=== PATIENT | female | born 1950 | race Caucasian/White ===

== ENCOUNTER → 2019-01-08 | Outpatient (CLI) | payer MEDICARE, SELFPAY ==
[2019-01-08 11:12] VITALS: BMI 42.1
[2019-01-08 14:15] LABS: AST(SGOT) 17 U/L (15-37); Alanine Aminotransfer ALT/SGPT 15 U/L (13-56); Albumin, Serum 3.4 g/dL (3.2-5.0); Alkaline Phosphatase 115 U/L (45-117); Bilirubin, Direct 0.21 mg/dL (0.00-0.30); Cholesterol 111 mg/dL (200); High Density Lipoprotein 61 mg/dL; Protein, Total 7.4 g/dL (6.4-8.2); Triglycerides 43 mg/dL; Very Low Density Lipoprotein 9 mg/dL (5-40)
== END | disposition home or self-care (01) ==
LOC: LAB 12:19
PROVIDERS: Family Provider Family Medicine; PCP Family Medicine; Referring Provider Internal Medicine Cardiovascular Disease; Visit Provider Internal Medicine Cardiovascular Disease
DX: I10 Essential (primary) hypertension (principal); I48.2 Chronic atrial fibrillation; E78.5 Hyperlipidemia, unspecified; I34.0 Nonrheumatic mitral (valve) insufficiency
CPT/HCPCS: 36415; 80061; 80076

== ENCOUNTER → 2019-01-25 | Outpatient (CLI) | payer MEDICARE, SELFPAY ==
[2019-01-08 11:12] VITALS: BMI 42.1
--- NOTE | 2019-01-25 09:57 | STEWCON_ITS ---
Reason For Study: VALVE REPLACEMENT-EVAL Stress Results Protocol: Dobutamine with definity Maximum Predicted HR: 152 bpm Target HR: 129 bpm % Maximum Predicted HR: 99 % DurationHeart Rate Stage (mm:ss) (bpm) BP Comment BASELINE 85 133/721 CC DEFINITY 10 MCG 3:05 85 129/691 CC DEFINITY 20 MCG 3:49 150 154/701 CC DEFINITY RECOVERY 98 130/781 CC DEFINITY Stress Duration: 6:54 mm:ss Maximum Stress HR: 150 bpm Baseline Echocardiogram Findings The estimated ejection fraction is 65 %. Stress Echo Wall motion Data Resting WM Intermediate WM Stress WM Resting Wall Motion Wall Motion Stress No regional wall motion No regional wall motion abnormalities noted. abnormalities noted. EKG Data Atrial fibrillation with CVR. The patient was titrated from 10 mcg to a maximum of 20 mcg of dobutamine during the stress. The maximum heart rate attained was 176 beats per minute. This was 115% of maximum predicted heart rate. During dobutamine infusion, there were no ST or T wave changes noted to suggest ischemia. No clinical angina was noted. Doppler Measurements & Calculations MV V2 max: 216.4 cm/sec MV max P.9 mmHg MV V2 mean: 122.4 cm/sec MV mean P.6 mmHg MV V2 VTI: 44.1 cm Interpretation Summary The estimated ejection fraction is 65 %. Normal, adequate, dobutamine echocardiogram. Negative for ischemia by EKG and echocardiographic anterior. No anginal symptoms noted. Rare PVCs and ventricular couplets noted which is a nonspecific finding given dobutamine. Baseline rhythm was atrial fibrillation with controlled ventricular response which persisted throughout the study. Final LVEF is 75%. Poor echo windows requiring Definity agent with resulting decreased sensitivity for ischemia. Test terminated due to attainment of target heart rate. No complications. The study was technically difficult. Contrast injection was performed. Ordering Physician: Misael Espino Referring Physician: Misael Espino Performed By: Dana Jeffery, HELEN, RVT
== END | disposition home or self-care (01) ==
LOC: CVS 09:56
PROVIDERS: Family Provider Family Medicine; PCP Family Medicine; Referring Provider Internal Medicine Cardiovascular Disease; Visit Provider Internal Medicine Cardiovascular Disease
DX: I34.0 Nonrheumatic mitral (valve) insufficiency (principal); I11.0 Hypertensive heart disease with heart failure; I50.9 Heart failure, unspecified; I48.2 Chronic atrial fibrillation; E78.5 Hyperlipidemia, unspecified; Z95.2 Presence of prosthetic heart valve
CPT/HCPCS: 93017; 93350; J7040; Q9957; A4216; C8928

== ENCOUNTER 2019-09-23 14:45 | Inpatient (IN) | payer MEDICARE, SELFPAY ==
[2019-03-28 10:28] VITALS: BMI 42.3
[2019-09-23] VITALS (14 sets, daily range): BP systolic 99–124; BP diastolic 53–70; PULSE 44–93; RESP 16–24; TEMP 36.3–37.1; O2SAT 81–100; BMI 47.9; BMI 47.8
--- NOTE | 2019-09-23 14:55 | EKG12_ITS ---
Test Reason : CP Blood Pressure : / mmHG Vent. Rate : 055 BPM Atrial Rate : 053 BPM P-R Int : 000 ms QRS Dur : 086 ms QT Int : 434 ms P-R-T Axes : 000 129 082 degrees QTc Int : 415 ms Atrial fibrillation with slow ventricular response Right axis deviation Low voltage QRS Septal infarct , age undetermined Abnormal ECG Confirmed by YELITZA HAILE, ROLAND ([id number]), television news video editor EMMETT CUMMINGS ([id number]) on 09/25/2019 1:33:56 PM Referred By: MEGAN/LOPEZ Confirmed By:ROLAND TORRE MD
--- NOTE | 2019-09-23 14:59 | ED.VIS.GEN ---
History of Present Illness Chief Complaint: Chest Pain Informant: Patient Onset: Days Context: Gradual Onset Timing: Intermittent Current Severity: Moderate Maximum Severity: Severe Narrative: The patient is a 68-year-old female with medical history significant for atrial fibrillation that presents to the emergency department with shortness of breath and chest pain. The patient was on Coumadin for 15 years. She states that she had 2 GI bleeds and it was stopped. She is had shortness of breath that is been increasing over the past month. She was seen pulmonary in hospital and diagnosed with a pulmonary embolus. She was started on Eliquis. The patient states that since then, she has had increasing dyspnea. She is also had a 30 pound weight gain. She has been on Lasix, but feels like it is not helping. Last night and today, she began to have substernal chest heaviness. She denies any history of coronary vascular disease but does have history of valvular disease and heart failure. She denies any fevers or chills. She had a scant nonproductive cough. Prior similar symptoms: Yes Recent Illness/Hospitalization: Yes Past Medical History - Allergies and Home Meds Allergies/Adverse Reactions: Allergies Cephalosporins Allergy (Intermediate, Verified 03/27/19 09:37) Rash erythromycin base Allergy (Intermediate, Verified 03/27/19 09:37) Unknown Penicillins Allergy (Intermediate, Verified 03/27/19 09:37) Rash Prior records reviewed: Yes Past Medical History: - - Atrial fibrillation, CHF Surgical History: noncontributory Smoking Status: Never smoker Review of Systems General: Denies: Chills, Fever, Sweats Eyes: Denies: Visual changes - bilaterally, Diplopia ENT: Denies: Rhinorrhea, Sore throat Cardiovascular: Reports: Chest pain. Denies: Palpitations Respiratory: Reports: Dyspnea, Cough, Dyspnea on exertion, Orthopnea Gastrointestinal: Denies: Abdominal pain, Nausea, Vomiting, Diarrhea, Melena, Hematochezia Genitourinary: Denies: Dysuria, Hematuria, Frequency Musculoskeletal: Denies: Back pain, Extremity Pain Skin: Denies: Rash, Wounds Neurological: Denies: Headache, Weakness, Numbness Physical Exam Vital Signs/Narrative: Vital Signs Temp Pulse Resp BP Pulse Ox 09/23/19 14:46 97.7 F L 54 L 20 H 124/62 H 99 Inital Vital Signs reviewed: Yes General: Well nourished, Well developed, No Acute Distress Head: Normocephalic, Atraumatic Eyes: Perrl, EOMI ENT: Moist mucous membranes, No rhinorrhea Neck: Supple, Nontender Cardiovascular: No murmurs, Irregular, Bradycardia Respiratory: No distress, Chest nontender, Rales, Decreased Air Movement Abdomen: Soft, Nontender, Nondistended, Normal bowel sounds Back: Nontender, Normal Inspection Extremities: Nontender, No edema Skin: Normal color, No rash Neurological: Alert, Oriented x3, Cranial nerves II-XII grossly intact, Normal Strength, Normal Sensation Psychological: Normal affect, Normal Mood Diagnostic/Tx/Re-eval Chest X-Ray - ED: 2 View, Chronic Changes, Cardiomegaly Clinical Impression(s) from Imaging Studies Chest X-Ray 09/23/19 15:32 IMPRESSION: Degenerative changes, as described above. No demonstrated acute cardiopulmonary process. Cardiomegaly Electronically Signed: Keith Sol MD at 15:48 EST , Service support , Abnormal Lab Results 09/23/19 09/23/19 09/23/19 15:15 15:15 15:15 WBC Cancelled Corrected WBC Cancelled RBC Cancelled Hgb Cancelled Hct Cancelled MCV Cancelled MCH Cancelled MCHC Cancelled RDW Std Deviation Cancelled RDW Coeff of Mavis Cancelled Plt Count Cancelled MPV Cancelled Immature Gran % (Auto) Cancelled Neut % (Auto) Cancelled Lymph % (Auto) Cancelled [place] % (Auto) Cancelled Eos % (Auto) Cancelled Baso % (Auto) Cancelled Absolute Neuts (auto) Cancelled Absolute Lymphs (auto) Cancelled Total Counted Cancelled Neutrophils % (Manual) Cancelled Band Neutrophils % Cancelled Lymphocytes % (Manual) Cancelled Monocytes % (Manual) Cancelled Eosinophils % (Manual) Cancelled Basophils % (Manual) Cancelled Metamyelocytes % Cancelled Myelocytes % Cancelled Promyelocytes % Cancelled Blast Cells % Cancelled Plasma Cell % (Manual) Cancelled Other Cells % Cancelled Nucleated RBC % Cancelled Nucleated RBCs/100 WBC Cancelled Differential Comment Cancelled Diff Path Review Cancelled Hypersegmented Neuts Cancelled Atypical Lymphocytes Cancelled Reactive Lymphocytes Cancelled Smudge Cells Cancelled Toxic Granulation Cancelled Toxic Vacuolation Cancelled Dohle Bodies Cancelled [place]ione Rods Cancelled Platelet Estimate Cancelled Plt Morphology Comment Cancelled RBC Morphology Cancelled Polychromasia Cancelled Hypochromasia Cancelled Poikilocytosis Cancelled Basophilic Stippling Cancelled Anisocytosis Cancelled Microcytosis Cancelled Macrocytosis Cancelled Spherocytes Cancelled Sickle Cells Cancelled Target Cells Cancelled Tear Drop Cells Cancelled Ovalocytes Cancelled Stomatocytes Cancelled [place] Bodies Cancelled [place] Cells Cancelled Bite Cells Cancelled Crenated Cell Cancelled Acanthocytes (Spur) Cancelled Rouleaux Cancelled Schistocytes Cancelled Sodium 141 Potassium 4.0 Chloride 104 Carbon Dioxide 32.0 Anion Gap 5 BUN 19 H Creatinine 1.24 H Estim Creat Clear Calc 35.92 Est GFR (MDRD) Af Amer 55 L Est GFR (MDRD) Non-Af 46 L BUN/Creatinine Ratio 15.3 Glucose 91 Calcium 8.6 Magnesium 2.6 Troponin I < 0.015 B-Natriuretic Peptide Cancelled 09/23/19 16:22 WBC 4.9 Corrected WBC RBC 4.37 Hgb 10.1 L Hct 37.1 MCV 84.9 MCH 23.1 L MCHC 27.2 L RDW Std Deviation 66.0 H RDW Coeff of Mavis 21.5 H Plt Count 114 L MPV 11.1 Immature Gran % (Auto) 0.200 Neut % (Auto) 69.7 Lymph % (Auto) 12.0 L [place] % (Auto) 15.3 H Eos % (Auto) 2.2 Baso % (Auto) 0.6 Absolute Neuts (auto) 3.4 Absolute Lymphs (auto) 0.59 L Total Counted Neutrophils % (Manual) Band Neutrophils % Lymphocytes % (Manual) Monocytes % (Manual) Eosinophils % (Manual) Basophils % (Manual) Metamyelocytes % Myelocytes % Promyelocytes % Blast Cells % Plasma Cell % (Manual) Other Cells % Nucleated RBC % 0 Nucleated RBCs/100 WBC Differential Comment SCANNED Diff Path Review Hypersegmented Neuts Atypical Lymphocytes Reactive Lymphocytes Smudge Cells Toxic Granulation Toxic Vacuolation Dohle Bodies [place] Rods Platelet Estimate Plt Morphology Comment RBC Morphology Polychromasia Hypochromasia Poikilocytosis Basophilic Stippling Anisocytosis Microcytosis Macrocytosis Spherocytes Sickle Cells Target Cells Tear Drop Cells Ovalocytes Stomatocytes [place] Bodies [place] Cells Bite Cells Crenated Cell Acanthocytes (Spur) Rouleaux Schistocytes Sodium Potassium Chloride Carbon Dioxide Anion Gap BUN Creatinine Estim Creat Clear Calc Est GFR (MDRD) Af Amer Est GFR (MDRD) Non-Af BUN/Creatinine Ratio Glucose Calcium Magnesium Troponin I B-Natriuretic Peptide - Rhythm Strip Rhythm Strip: A-fib Rate: 50 Ectopy: None - EKG Initial EKG Interpretation: No Acute Injury Pattern, Atrial Fibrillation Prior: Unchanged - Medical Decision Making The patient presents to the emergency department with chest pain, hypoxia, and weight gain. She was 81% on room air. She was placed on supplemental oxygen. She does have history of pulmonary hypertension secondary to heart failure. X-ray was obtained. There is no significant evidence of volume overload. The patient had EKG done which shows a atrial fibrillation at a bradycardic rate. She is on 2 different rate controlling medications. Screening labs are otherwise unremarkable. She has no significant anemia. Her cardiac enzymes are normal. I do suspect that her edema is multifactorial. She is on 2 separate rate controlling medications and is bradycardic and I feel like it is likely causing exacerbation of her underlying CHF. Given her hypoxia and chest pain I do feel that she would benefit from admission. The patient was discussed with the hospitalist. Impression 1. Acute CHF exacerbation 2. Chest pain ED Disposition - Plan for ED Patient:
[2019-09-23] MEDS: Aspirin 81 MG TAB.CHEW 324 MG PO (15:28)
--- NOTE | 2019-09-23 15:32 | RAD_ITS ---
STUDY: X-RAY CHEST REASON FOR EXAM: Female, 68 years old. Chest pain/pressure TECHNIQUE: Single AP portable view of the chest. COMPARISON: None. FINDINGS: EKG leads overlie the chest There are interstitial fibrotic changes of the lungs. There is no demonstrated pleural abnormality. There is cardiomegaly. Normal mediastinum and chloé. Normal visualized pulmonary arteries. Normal visualized aortic arch and descending thoracic aorta. There are diffuse degenerative changes of the visualized thoracic spine. Normal visualized ribs, clavicles, and shoulders. There is no demonstrated abnormality of the visualized soft tissue structures of the upper abdomen. RAD/Chest 1 View (Portable) IMPRESSION: Degenerative changes, as described above. No demonstrated acute cardiopulmonary process. Cardiomegaly Electronically Signed: Keith Sol MD at 15:48 EST , Service support ,
[2019-09-23 15:50] LABS: Anion Gap 5 (5-15); BUN 19 mg/dL (7-18); BUN/Creat Ratio 15.3 RATIO (10-20); Calcium,Total 8.6 mg/dL (8.5-10.1); Chloride 104 mmol/L (98-107); Creatinine, Serum 1.24 mg/dL (0.55-1.02); EST Glomerular Filtration Rate 46 mL/min (>60); Est Glom Filt Rate - Afr Amer 55 mL/min (>60); Estimated Creatinine Clearance 35.92 ml/min; Glucose 91 mg/dL (74-106); Magnesium 2.6 mg/dL (1.6-2.6); Sodium Level 141 mmol/L (136-145)
[2019-09-23 16:33] LABS: Absolute Lymphocyte Count 0.59 X10^3/uL (0.83-4.51); Absolute Neutrophil Count 3.4 X10^3/uL (2.0-7.7); Basophil# 0.03 X10^3/uL; Basophil% 0.6 % (0-1); Eosinophil# 0.11 X10^3/uL; Eosinophils% 2.2 % (0-5); Hematocrit 37.1 % (37-47); Hemoglobin 10.1 g/dL (12.0-15.0); Lymphocyte # 0.59 X10^3/ul (4.0); Mean Corp Hgb Conc 27.2 g/dL (32-36); Mean Corpuscular Hgb 23.1 pg (27.0-32.0); Mean Corpuscular Volume 84.9 fL (81-99); Mean Platelet Vol. 11.1 fl (6.2-12.0); Monocyte# 0.75 X10^3/uL; Monocyte% 15.3 % (0-10); NRBC Flagged by Analyzer 0 % (0-5); Neutrophil # 3.42 X10^3/uL (2.7-7.7); Neutrophil % 69.7 % (47-70); POSITIVE DIFFERENTIAL YES; POSITIVE MORPHOLOGY YES; Platelet Count 114 K/mm3 (150-450); RBC Distribution Width CV 21.5 % (11.6-14.6); Red Blood Count 4.37 M/mm3 (4.2-5.4); White Blood Count 4.9 K/mm3 (4.4-11.0)
[2019-09-23 16:39] LABS: Differential Indicated SCAN CRITERIA MET
--- NOTE | 2019-09-23 17:01 | HP.PCM_ITS ---
<Iona Porter - Last Filed: 09/23/19 17:59> Problem List (1) Abscess involving suture Status: Chronic (2) Secondary pulmonary hypertension Status: Chronic Comment: RVSP 53 mmhg per echo 09/28/2018 done @ [facility] (3) Nonrheumatic mitral valve regurgitation Status: Chronic Comment: Moderate per echo 09/28/2018 done @ [facility] (4) Essential hypertension Status: Chronic (5) CHF (congestive heart failure) Status: Chronic (6) Chronic atrial fibrillation Status: Chronic (7) Hyperlipidemia Status: Chronic History of Present Illness Date of Admission: 09/23/19 Chief Complaint: Chest pain, shortness of breath, weight gain. The patient is a 68 year old F who presents to the Emergency Department due to increased shortness of breath, weight gain and increased lower extremity swelling. Patient also notes intermittent chest pressure. Patient reports a 30 pound weight gain over the past month and a half. She states she was at [facility] at the end of July where she was treated for pulmonary embolism and right lower extremity cellulitis. She was placed on Eliquis at that time. She reports her weight gain and increased swelling has worsened since that hospitalization. Patient complains of being easily fatigued which she did not have issues with prior. Patient also reports during her recent hospitalization she was diuresed and lost approximately 20 pounds which she has regained plus more. Patient has a past medical history of chronic atrial fibrillation, hypertension, hypothyroidism, iron deficiency anemia, GERD, hyperlipidemia and morbid obesity. Past Medical History Past Medical History (Chronic Problems): Chronic Problems (Last Reviewed 03/27/19 @ 09:38 by Pooja Isabel) Abscess involving suture (Chronic) Secondary pulmonary hypertension (Chronic) RVSP 53 mmhg per echo 09/28/2018 done @ [facility] Nonrheumatic mitral valve regurgitation (Chronic) Moderate per echo 09/28/2018 done @ [facility] Essential hypertension (Chronic) CHF (congestive heart failure) (Chronic) Chronic atrial fibrillation (Chronic) Hyperlipidemia (Chronic) Medical History: Medical History (Last Reviewed 03/27/19 @ 09:38 by Pooja Isabel) Abscess involving suture (Chronic) T81.49XA Secondary pulmonary hypertension (Chronic) RVSP 53 mmhg per echo 09/28/2018 done @ [facility] Nonrheumatic mitral valve regurgitation (Chronic) I34.0 Moderate per echo 09/28/2018 done @ [facility] Essential hypertension (Chronic) I10 CHF (congestive heart failure) (Chronic) I50.9 Chronic atrial fibrillation (Chronic) I48.2 Hyperlipidemia (Chronic) E78.5 GERD (gastroesophageal reflux disease) K21.9 History of malignant melanoma Z85.820 Hypothyroidism E03.9 Obesity E66.9 s/p gastric bypass Osteoarthritis M19.90 History of GI bleed Z87.19 X 2 Allergies Cephalosporins Allergy (Intermediate, Verified 03/27/19 09:37) Rash erythromycin base Allergy (Intermediate, Verified 03/27/19 09:37) Unknown Penicillins Allergy (Intermediate, Verified 03/27/19 09:37) Rash Home Medications: Ambulatory Orders Medication Instructions Recorded diltiazem HCl 120 mg tablet 240 mg PO DAILY tab 01/03/19 ferrous sulfate 325 mg (65 mg 325 mg PO QWEEK tab 01/03/19 iron) tablet gemfibrozil 600 mg tablet 600 mg PO BID 01/03/19 isosorbide mononitrate 30 mg 30 mg PO DAILY 01/03/19 tablet,extended release 24 hr levothyroxine 137 mcg tablet 137 mcg PO DAILY 01/03/19 metoprolol tartrate 100 mg tablet 100 mg PO BID 01/03/19 omeprazole 40 mg capsule,delayed 40 mg PO DAILY 01/03/19 release potassium 99 mg tablet 99 mg PO DAILY 01/03/19 prenat.vits,licha,wso-ftsu-clefh 1 tab PO DAILY 01/03/19 furosemide 40 mg tablet 40 mg PO BID 01/08/19 Apixaban [Eliquis] 5 mg PO BID 09/23/19 Silver Sulfadiazine 1 applic TOPICAL BID PRN PRN 09/23/19 Surgical History: Surgical History (Last Reviewed 09/23/19 @ 17:32 by NINA Koroma) History of bowel resection Z90.49 History of carpal tunnel release Z98.890 History of gastric bypass Z98.84 History of hernia repair Onset Date: ~2008 Z98.890, Z87.19 History of lumpectomy of both breasts Z98.890 History of tonsillectomy Z90.89 Surgical History: - - Hernia with mesh repair, small bowel obstruction requiring emergent surgery, tonsillectomy, gastric bypass, carpal tunnel bilateral wrist, breast lumpectomy Psychiatric History: No pertinent psych hx 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 Lives: Alone Smoking Status: Never smoker Alcohol: None Drugs: None - *Family History Maternal Family History: Family History (Last Reviewed 09/23/19 @ 17:32 by NINA Koroma) Father CVA (cerebral vascular accident) Hypertension History Items: Hypertension, - - hypothyroidism Paternal Family History: Family History (Last Reviewed 09/23/19 @ 17:32 by NINA Koroma) Father CVA (cerebral vascular accident) Hypertension Review of Systems Constitutional: Denies: Chills, Fever, Weight Change HEENT: Denies: Head Aches, Sinus Congestion, Sinus Drainage Cardiovascular: Reports: Chest Pressure, Edema - Bilateral lower extremities, right greater than left. Denies: Light Headedness, Palpitations, Syncope Respiratory: Reports: Shortness of Breath, Shortness of breath upon exertion. Denies: Cough, Sputum production, Wheezing Gastrointestinal: Denies: Abdominal Pain, Nausea, Vomiting Genitourinary: Denies: Dysuria Musculoskeletal: Denies: Joint Pain, Joint Tenderness Skin: Reports: - - Healing midline abdominal wounds, bilateral lower extremity chronic skin changes with severe skin flaking. Denies: Rash Neurological: Denies: Numbness, Tingling, Focal weakness Psychiatric: Denies: Anxiety, Depression, Homicidal Ideations, Suicidal Ideations Hematologic/ Lymphatic: Denies: Easy Bruising, Easy Bleeding VTE Information - Inpt Only VTE Present on Admission: No VTE Mechan Device Prophylaxis: None VTE Pharm Prophylaxis ordered?: No Reason prophylaxis not ordered:: Treatment Not Indicated - Already on anticoagulation - Physical Exam Vitals/I&O's: Vital Signs Temp Pulse Resp BP Pulse Ox 97.7 F L 44 L 18 99/63 99 09/23/19 14:46 09/23/19 16:25 09/23/19 16:25 09/23/19 16:25 09/23/19 16:25 Oxygen Flow Rate (L/min) 3 Oxygen Delivery Method Nasal Cannula Weight: 270 lb 8.115 oz Body Mass Index (BMI) 47.9 General: Alert, Oriented x3, Cooperative, - - Appears older than stated age HEENT: Atraumatic, PERRLA, EOMI, Normocephalic Neck: Supple, No JVD, Negative Carotid Bruits Lungs: Clear to auscultation, Diminished Cardiovascular: - - Atrial fibrillation, bradycardic Abdomen: Bowel Sounds Present, Soft, Non Tender, Non-Distended, Obese Extremities: No clubbing, No cyanosis, Edema - Bilateral lower extremity edema extending to upper thigh, right lower extremity significantly larger than left. Skin: - - Bilateral lower extremity with chronic hyperpigmentation/skin changes with dryness/flaking. Midline abdominal with 2 healing wounds, some eschar noted. No drainage or erythema. Musculoskeletal: No Tenderness to Palpation of Joints or Extremities Neurological: Cranial nerves II-XII grossly intact, Neuro grossly intact Psych/Mental Status: Normal Affect, Appropriate Laboratory Results 09/23/19 15:15: WBC Cancelled, Corrected WBC Cancelled, RBC Cancelled, Hgb C ancelled, Hct Cancelled, MCV Cancelled, MCH Cancelled, MCHC Cancelled, RDW Std Deviation Cancelled, RDW Coeff of Mavis Cancelled, Plt Count Cancelled, MPV Cancelled, Immature Gran % (Auto) Cancelled, Neut % (Auto) Cancelled, Lymph % (Auto) Cancelled, Benton % (Auto) Cancelled, Eos % (Auto) Cancelled, Baso % (Auto) Cancelled, Absolute Neuts (auto) Cancelled, Absolute Lymphs (auto) Cancelled, Total Counted Cancelled, Neutrophils % (Manual) Cancelled, Band Neutrophils % Cancelled, Lymphocytes % (Manual) Cancelled, Monocytes % (Manual) Cancelled, Eosinophils % (Manual) Cancelled, Basophils % (Manual) Cancelled, Metamyelocytes % Cancelled, Myelocytes % Cancelled, Promyelocytes % Cancelled, Blast Cells % Cancelled, Plasma Cell % (Manual) Cancelled, Other Cells % Cancelled, Nucleated RBC % Cancelled, Nucleated RBCs/100 WBC Cancelled, Differential Comment Cancelled, Diff Path Review Cancelled, Hypersegmented Neuts Cancelled, Atypical Lymphocytes Cancelled, Reactive Lymphocytes Cancelled, Smudge Cells Cancelled, Toxic Granulation Cancelled, Toxic Vacuolation Cancelled, Dohle Bodies Cancelled, Antione Rods Cancelled, Platelet Estimate Cancelled, Plt Morphology Comment Cancelled, RBC Morphology Cancelled, Polychromasia Cancelled, Hypochromasia Cancelled, Poikilocytosis Cancelled, Basophilic Stippling Cancelled, Anisocytosis Cancelled, Microcytosis Cancelled, Macrocytosis Cancelled, Spherocytes Cancelled, Sickle Cells Cancelled, Target Cells Cancelled, Tear Drop Cells Cancelled, Ovalocytes Cancelled, Stomatocytes Cancelled, Callahan-Chapman Bodies Cancelled, [place] Cells Cancelled, Bite Cells Cance lled, Crenated Cell Cancelled, Acanthocytes (Spur) Cancelled, Rouleaux Cancelled, Schistocytes Cancelled 09/23/19 15:15: Sodium 141, Potassium 4.0, Chloride 104, Carbon Dioxide 32.0, Anion Gap 5, BUN 19 H, Creatinine 1.24 H, Estim Creat Clear Calc 35.92, Est GFR (MDRD) Af Amer 55 L, Est GFR (MDRD) Non-Af 46 L, BUN/Creatinine Ratio 15.3, Glucose 91, Calcium 8.6, Magnesium 2.6, Troponin I < 0.015 09/23/19 15:15: B-Natriuretic Peptide Cancelled 09/23/19 16:22: WBC 4.9, RBC 4.37, Hgb 10.1 L, Hct 37.1, MCV 84.9, MCH 23.1 L, MCHC 27.2 L, RDW Std Deviation 66.0 H, RDW Coeff of Mavis 21.5 H, Plt Count 114 L, MPV 11.1, Immature Gran % (Auto) 0.200, Neut % (Auto) 69.7, Lymph % (Auto) 12.0 L, Benton % (Auto) 15.3 H, Eos % (Auto) 2.2, Baso % (Auto) 0.6, Absolute Neuts (auto) 3.4, Absolute Lymphs (auto) 0.59 L, Nucleated RBC % 0 09/23/19 16:22: B-Natriuretic Peptide Pending Assessment/Plan 1. Acute hypoxic respiratory insufficiency secondary to acute on chronic heart failure with reduced ejection fraction-patient reports 30+ pound weight gain over the past 4 to 6 weeks. BNP pending. Chest x-ray without acute process. Patient oxygen 81% on room air on admission. Continue supplement oxygen to maintain O2 at or above 90%. Patient will need walking pulse ox prior to discharge. Strict I&O. Daily weight. Shantanu wraps bilateral lower extremities. IV Lasix. Prior echo [facility] September 2018 demonstrated EF 45 to 50%, moderate mitral annular calcification with rheumatic appearing mitral valve leaflets with mild leaflet thickening and calcification with restricted mobility. Mild mitral stenosis and mild mitral regurgitation. RVSP estimated to be 53 mmHg, consistent with moderate pulmonary hypertension. Repeat echocardiogram. 2. Chronic lymphedema-lower extremity duplex ultrasound 08/20/2019 negative for DVT at outside facility. Shantanu wraps lower extremities. Elevate. Refer to wound center as outpatient for lymphedema management. 3. Chest pressure-EKG without acute ischemia. Trend enzymes. Obtain echo. 4. Valvular heart disease-Per echo as noted above. 5. Recent diagnosis PE-on anticoagulation with Eliquis. 6. Chronic atrial fibrillation-follows with Dr. Espino. History of cardioversion x4 that were unsuccessful. Previously on Coumadin for 15 years however discontinued due to GI bleed. Now on Eliquis related to recent PE. Patient A. fib in ER with slow rate, 40s to 50s. Patient is on high-dose beta- michelle, metoprolol 100 mg twice daily. Will reduce this to metoprolol 50 mg twice daily. Continue home Cardizem regimen. 7. Suspected chronic kidney disease stage III-unknown prior labs for comparison. Trend BMP. 8. History of GI bleed-Coumadin previously discontinued. Now on Eliquis related to PE. 9. Hypertension-stable, continue Cardizem, isosorbide. Metoprolol reduced as noted above. 10. Hyperlipidemia-continue gemfibrozil regimen. 11. Morbid obesity-previous gastric bypass. Encouraged diet and lifestyle modifications. 12. Midline chronic abdominal wounds-do not appear acutely infected. Some areas of echar. Consult wound RN. 13. Large pelvic mass-recent CT of abdomen and pelvis 08/20/2019 at [facility] showed a large pelvic mass which appeared to be of right ovarian origin displacing the uterus. Undergoing outpatient evaluation with Dr. Avery for neoplastic work-up. CT also noted indeterminate lesion in the right kidney, concerning for neoplasm. 14. Chronic iron deficiency anemia- continue iron supplementation, trend CBC. DVT prophylaxis-Eliquis CODE STATUS: Discussed with patient in length including differences in full code, DNR CCA and DNR CC. Patient would like to be DNR CCA, okay with intubation if for short-term. This patient was seen by NINA Koroma under the supervision of Dr. Hernandez. <Mc Hernandez F - Last Filed: 09/23/19 18:14> History of Present Illness The patient is a 68 year old F [] Past Medical History Medical History: Medical History (Last Reviewed 03/27/19 @ 09:38 by Pooja Isabel) Abscess involving suture (Chronic) T81.49XA Secondary pulmonary hypertension (Chronic) RVSP 53 mmhg [facility] Nonrheumatic mitral valve regurgitation (Chronic) I34.0 Moderate per echo 09[facility]28[facility] Essential hypertension (Chronic) I10 CHF (congestive heart failure) (Chronic) I50.9 Chronic atrial fibrillation (Chronic) I48.2 Hyperlipidemia (Chronic) E78.5 GERD (gastroesophageal reflux disease) K21.9 History of malignant melanoma Z85.820 Hypothyroidism E03.9 Obesity E66.9 s/p gastric bypass Osteoarthritis M19.90 History of GI bleed Z87.19 X 2 Allergies Cephalosporins Allergy (Intermediate, Verified 03/27/19 09:37) Rash erythromycin base Allergy (Intermediate, Verified 03/27/19 09:37) Unknown Penicillins Allergy (Intermediate, Verified 03/27/19 09:37) Rash clindamycin Allergy (Verified 09/23/19 17:27) Rash Surgical History: Surgical History (Last Reviewed 09/23/19 @ 17:32 by NINA Koroma) History of bowel resection Z90.49 History of carpal tunnel release Z98.890 History of gastric bypass Z98.84 History of hernia repair Onset Date: ~2008 Z98.890, Z87.19 History of lumpectomy of both breasts Z98.890 History of tonsillectomy Z90.89 - *Family History Maternal Family History: Family History (Last Reviewed 09/23/19 @ 17:32 by NINA Koroma) Father CVA (cerebral vascular accident) Hypertension Paternal Family History: Family History (Last Reviewed 09/23/19 @ 17:32 by NINA Koroma) Father CVA (cerebral vascular accident) Hypertension - Physical Exam Vitals/I&O's: Vital Signs Temp Pulse Resp BP Pulse Ox 98.7 F 59 L 18 121/65 H 98 09/23/19 18:03 09/23/19 18:03 09/23/19 18:03 09/23/19 18:03 09/23/19 18:03 Oxygen Flow Rate (L/min) 3 Oxygen Delivery Method Nasal Cannula Weight: 270 lb Body Mass Index (BMI) 47.8 Laboratory Results 09/23/19 15:15: WBC Cancelled, Corrected WBC Cancelled, RBC Cancelled, Hgb Cancelled, Hct Cancelled, MCV Cancelled, MCH Cancelled, MCHC Cancelled, RDW Std Deviation Cancelled, RDW Coeff of Mavis Cancelled, Plt Count Cancelled, MPV Cancelled, Immature Gran % (Auto) Cancelled, Neut % (Auto) Cancelled, Lymph % (Auto) Cancelled, Benton % (Auto) Cancelled, Eos % (Auto) Cancelled, Baso % (Auto) Cancelled, Absolute Neuts (auto) Cancelled, Absolute Lymphs (auto) Cancelled, Total Counted Cancelled, Neutrophils % (Manual) Cancelled, Band Neutrophils % Cancelled, Lymphocytes % (Manual) Cancelled, Monocytes % (Manual) Cancelled, Eosinophils % (Manual) Cancelled, Basophils % (Manual) Cancelled, Metamyelocytes % Cancelled, Myelocytes % Cancelled, Promyelocytes % Cancelled, Blast Cells % Cancelled, Plasma Cell % (Manual) Cancelled, Other Cells % Cancelled, Nucleated RBC % Cancelled, Nucleated RBCs/100 WBC Cancelled, Differential Comment Cancelled, Diff Path Review Cancelled, Hypersegmented Neuts Cancelled, Atypical Lymphocytes Cancelled, Reactive Lymphocytes Cancelled, Smudge Cells Cancelled, Toxic Granulation Cancelled, Toxic Vacuolation Cancelled, Dohle Bodies Cancelled, Antione Rods Cancelled, Platelet Estimate Cancelled, Plt Morphology Comment Cancelled, RBC Morphology Cancelled, Polychromasia Cancelled, Hypochromasia Cancelled, Poikilocytosis Cancelled, Basophilic Stippling Cancelled, Anisocytosis Cancelled, Microcytosis Cancelled, Macrocytosis Cancelled, Spherocytes Cancelled, Sickle Cells Cancelled, Target Cells Cancelled, Tear Drop Cells Cancelled, Ovalocytes Cancelled, Stomatocytes Cancelled, Callahan-Chapman Bodies Cancelled, John Cells Cancelled, Bite Cells Cancelled, Crenated Cell Cancelled, Acanthocytes (Spur) Cancelled, Rouleaux Cancelled, Schistocytes Cancelled 09/23/19 15:15: Sodium 141, Potassium 4.0, Chloride 104, Carbon Dioxide 32.0, Anion Gap 5, BUN 19 H, Creatinine 1.24 H, Estim Creat Clear Calc 35.92, Est GFR (MDRD) Af Amer 55 L, Est GFR (MDRD) Non-Af 46 L, BUN/Creatinine Ratio 15.3, Glucose 91, Calcium 8.6, Magnesium 2.6, Troponin I < 0.015 09/23/19 15:15: B-Natriuretic Peptide Cancelled 09/23/19 16:22: WBC 4.9, RBC 4.37, Hgb 10.1 L, Hct 37.1, MCV 84.9, MCH 23.1 L, MCHC 27.2 L, RDW Std Deviation 66.0 H, RDW Coeff of Mavis 21.5 H, Plt Count 114 L, MPV 11.1, Immature Gran % (Auto) 0.200, Neut % (Auto) 69.7, Lymph % (Auto) 12.0 L, Benton % (Auto) 15.3 H, Eos % (Auto) 2.2, Baso % (Auto) 0.6, Absolute Neuts (auto) 3.4, Absolute Lymphs (auto) 0.59 L, Nucleated RBC % 0, Differential Comment SCANNED 09/23/19 16:22: B-Natriuretic Peptide 250.2 H Current Medications Apixaban (Eliquis) 5 mg PO BID [facility] Ferrous Sulfate (Ferrous Sulfate) 325 mg PO QWEEK DANA Furosemide (Lasix) 40 mg IV BID@1000,1800 DANA Gemfibrozil (Lopid) 600 mg PO BID [facility] Isosorbide Mononitrate (Imdur) 30 mg PO DAILY [facility] Levothyroxine Sodium (Synthroid) 137 mcg PO DAILY [facility] Metoprolol Tartrate (Lopressor (Beta Michelle)) 50 mg PO BID [facility] Nitroglycerin (Nitrostat) 0.4 mg SUBLINGUAL Q5M PRN PRN Reason: CARDIAC/CHEST PAIN Non-Formulary Medication (Diltiazem Hcl) 120 mg PO DAILY [facility] Non-Formulary Medication (Omeprazole) 40 mg PO DAILY [facility] Code Visit Addendum: Dr. David Disla personally examined the patient and reviewed the chart. I agree with the above. 68-year-old female who presents to the hospital with increasing lower e xtremity edema as well as shortness of breath. She states that she was diagnosed with a PE about a month ago and was started on Eliquis and since then she has been gaining weight. She does take a second Lasix intermittently however she says that it was not working this time. She says that the majority of her weight gain has happened in the last week and a half. She says that she has had issues like this in the past however she was usually able to control it with taking that extra Lasix however that did not help this time. She had an echo here in September with a normal EF and indeterminate diastolic function given her A. fib. Her BNP is elevated however we do not know what her baseline is. She does have a history of pulmonary hypertension and will repeat an echo. She says that she was here to be seen cardiology on 02 October therefore we will consult them for further evaluation and assistance especially given her fluid overload status and her slow A. fib, her heart rates here have been in the 40s. Will decrease her blood pressure and rate control medications in half, and can we will continue with Eliquis 40 mg IV twice daily. Continue with Eliquis for her history of a PE, she is to be on Coumadin however she had a GI bleed and therefore will also continue with her PPI. She does also have a large pelvic mass that was found at the end of July on CT scan of the abdomen. She is following with Dr. Avery, will recommend that he should continue to follow-up with him as an outpatient. Of note her right leg is always much larger than the left because she says of a heart cath that she had done 20 years ago that occurred in the right groin. Inpatient E&M: 74957 Init Hosp L3
[2019-09-23] MEDS: Furosemide 40 MG/4 ML Vial IV (17:18)
[2019-09-23 17:20] LABS: Differential Comment SCANNED
[2019-09-23 17:33] LABS: BNP,B-Type NATRIURETIC PEPTIDE 250.2 pg/mL (0-100)
--- NOTE | 2019-09-23 18:02 | ECHOCS_ITS ---
Reason For Study: CHF Procedure This was a 2D Doppler, Color Flow transthoracic echocardiogram. Contrast injection was performed. The study was technically difficult. Left Ventricle Normal LV size. Left ventricular systolic function is normal. The estimated ejection fraction is 55 %. Stage 3 diastolic dysfunction. No regional wall motion abnormalities noted. Right Ventricle Normal RV size. Normal systolic function. Atria The left atrium is severely enlarged. The right atrium is moderately enlarged. Mitral Valve There is mild mitral annular calcification. Moderate focal mitral valve calcification, bileaflet. Mitral valve doming/Hockey Sticking. Rheumatic appearing. Mild-Moderate (1-2+) mitral valve insufficiency. Tricuspid Valve Normal tricuspid valve. Mild to moderate (1-2+) tricuspid valve insufficiency. Pulmonary artery systolic pressure is 46 mmHg. Mild pulmonary hypertension. Aortic Valve Trisinus/trileaflet aortic valve. Mild focal aortic valve calcification. Peak aortic valve gradient 21 mmHg. Mean aortic valve gradient 13 mmHg. Mild aortic stenosis. Pulmonic Valve Normal pulmonic valve. Great Vessels Normal aortic root. The pulmonary artery is normal size. Normal inferior vena cava. Pericardium/Pleural No pericardial effusion. Medication Diluted definity 2ml given slow IV push to enhance endocardial definition. MMode/2D Measurements & Calculations LVIDd: 5.0 cm IVSd: 0.82 cm LVOT diam: 2.0 cm LVIDs: 2.4 cm LVPWd: 0.93 cm RVDd: 4.5 cm FS: 52.1 % LVOT area: 3.2 cm2 Ao root diam: 3.2 cm LAV(MOD-bp): 215.6 ml LA A4 area: 53.9 cm2 LA dimension: 4.7 cm LAV(MOD-bp) Indexed: 99.3 ml/m2 LAV(MOD-sp2): 176.4 ml LAV(MOD-sp4): 244.2 ml RA A4 area: 30.1 cm2 Doppler Measurements & Calculations MV E max latrell: 185.6 cm/sec Lat Peak E' Latrell: 11.7 cm/sec Med Peak E' Latrell: 10.3 cm/sec MV A max latrell: 73.7 cm/sec E/E' lat: 15.9 E/E' med: 18.0 MV E/A: 2.5 Ao V2 max: 231.9 cm/sec LV V1 max: 132.2 cm/sec MR max latrell: 433.9 cm/sec Ao max P.5 mmHg LV V1 max P.0 mmHg MR max P.3 mmHg Ao V2 mean: 170.8 cm/sec LV V1 mean P.1 mmHg MR mean latrell: 347.6 cm/sec Ao mean P.1 mmHg LV V1 mean: 95.1 cm/sec MR mean P.6 mmHg Ao V2 VTI: 50.6 cm LV V1 VTI: 27.4 cm MR VTI: 122.0 cm ZOHAIB(I,D): 1.7 cm2 ZOHAIB(V,D): 1.8 cm2 SV(LVOT): 87.5 ml PA V2 max: 159.9 cm/sec TR max latrell: 326.9 cm/sec TR max P.7 mmHg Interpretation Summary Normal LV size. Left ventricular systolic function is normal. The estimated ejection fraction is 55 %. Mitral valve doming/Hockey Sticking Rheumatic appearing Mild-Moderate (1-2+) mitral valve insufficiency. Mild pulmonary hypertension. Stage 3 diastolic dysfunction. Contrast injection was performed. Ordering Physician: Mc Hernandez Referring Physician: Guzman Lopez Performed By: Jg Taylor RCS
[2019-09-23] MEDS: Metoprolol Tartrate 50 MG Tablet PO (21:52)
[2019-09-23] MEDS: APIXABAN 5 MG TABLET PO (21:52)
[2019-09-24] VITALS (18 sets, daily range): BP systolic 102–120; BP diastolic 38–77; PULSE 53–99; RESP 18–24; TEMP 36.3–37.4; O2SAT 92–94
[2019-09-24 06:11] LABS: Absolute Lymphocyte Count 0.58 X10^3/uL (0.83-4.51); Absolute Neutrophil Count 2.1 X10^3/uL (2.0-7.7); Basophil# 0.04 X10^3/uL; Basophil% 1.1 % (0-1); Eosinophil# 0.17 X10^3/uL; Eosinophils% 4.8 % (0-5); Hematocrit 36.5 % (37-47); Hemoglobin 9.8 g/dL (12.0-15.0); Lymphocyte # 0.58 X10^3/ul (4.0); Lymphocyte % 16.5 % (19-41); Mean Corp Hgb Conc 26.8 g/dL (32-36); Mean Corpuscular Volume 89.2 fL (81-99); Mean Platelet Vol. 10.5 fl (6.2-12.0); Monocyte# 0.58 X10^3/uL; Monocyte% 16.5 % (0-10); NRBC Flagged by Analyzer 0 % (0-5); Neutrophil # 2.14 X10^3/uL (2.7-7.7); Neutrophil % 60.8 % (47-70); POSITIVE DIFFERENTIAL YES; POSITIVE MORPHOLOGY YES; Platelet Count 101 K/mm3 (150-450); RBC Distribution Width CV 21.7 % (11.6-14.6); RBC Distribution Width SD 70.1 fl (35.1-43.9); Red Blood Count 4.09 M/mm3 (4.2-5.4); White Blood Count 3.5 K/mm3 (4.4-11.0)
[2019-09-24 06:37] LABS: Anion Gap 5 (5-15); BUN 18 mg/dL (7-18); BUN/Creat Ratio 16.4 RATIO (10-20); Calcium,Total 8.1 mg/dL (8.5-10.1); Chloride 102 mmol/L (98-107); EST Glomerular Filtration Rate 52 mL/min (>60); Est Glom Filt Rate - Afr Amer 63 mL/min (>60); Estimated Creatinine Clearance 38.71 ml/min; Glucose 83 mg/dL (74-106); Potassium 3.6 mmol/L (3.5-5.1); Sodium Level 142 mmol/L (136-145)
[2019-09-24 06:41] LABS: Differential Indicated SCAN CRITERIA MET
[2019-09-24] MEDS: Gemfibrozil 600 MG Tablet PO ×2 (07:03→17:19)
[2019-09-24] MEDS: Levothyroxine 137 MCG Tablet PO (07:03)
[2019-09-24 07:13] LABS: Differential Comment SCANNED; Hypochromasia 1+; Macrocytosis 1+; Platelet Estimate SLT DEC (ADEQ); Stomatocyte 1+
--- NOTE | 2019-09-24 07:28 | CON.PCM_ITS ---
Reason for Consult Date of Consultation: 09/24/19 Reason for Consultation: Shortness of breath, atrial fibrillation History of Present Illness: The patient is a 68 year old F who presented to the emergency room with shortness of breath which has been progressive over the last few days. She had mild chest heaviness but no dizziness or diaphoresis no near syncope or syncope. In the emergency room she was evaluated she was noted to be mildly bradycardic and so she was admitted for further evaluation and management. She does have a history of chronic atrial fibrillation first diagnosed about 15 years ago, had attempted cardioversion x4 which were unsuccessful. The patient was on Coumadin therapy for period of around 15 years, and then in 2010 developed a GI obstruction requiring abdominal surgery. Patient had a subsequent GI bleed x2, and her Coumadin was discontinued at that time. Her most recent echocardiogram took place at [facility] on 09/28/2018 which demonstrated mild global hypokinesis with an EF around 45 to 50%, normal RV size, markedly dilated left and right atrium, moderate mitral annular calcification with rheumatic appearing mitral valve leaflets and mild calcification. Mild MS and mild MR as well as an RVSP estimated to be at least 53 mmHg consistent with at least moderate pulmonary hypertension. Her peak and mean mitral gradient was 22 and 5 mmHg respectively at that time. A left heart catheterization took place on 11/09/2005 which demonstrated normal LV size and function, severe diastolic dysfunction, moderate pulmonary hypertension, mild to moderate MR, and an LAD of 10 to 20% proximal stenosis. Her circumflex and RCA and ramus had minimal nonobstructive disease. Subsequent to this, the patient has chronic right lower extremity lymphedema since her catheterization A transesophageal echo took place on 11/10/2005 which demonstrated normal LV function with an EF of 55%, rheumatic appearing mitral valve with an estimated MVA of 3.1 cm? consistent with mild mitral stenosis, moderate MR. Patient states that she has been doing fairly well up into the last year when she has had progressively worsening dyspnea on exertion and shortness of breath. She was admitted to [facility] in 2016 with what appears to be co ngestive heart failure and required diuretic Lasix adjustment. She denies any exertional anginal symptoms. As part of her cardiac work-up she underwent a stress echocardiogram on 01/25/2019 which was negative for inducible ischemia. She was last seen in the office of Dr. Espino in the fall 2018. Past Medical History Allergies/Adverse Reactions: Allergies Cephalosporins Allergy (Intermediate, Verified 03/27/19 09:37) Rash erythromycin base Allergy (Intermediate, Verified 03/27/19 09:37) Unknown Penicillins Allergy (Intermediate, Verified 03/27/19 09:37) Rash clindamycin Allergy (Verified 09/23/19 17:27) Rash Home Medications: Ambulatory Orders Medication Instructions Recorded diltiazem HCl 120 mg tablet 240 mg PO DAILY tab 01/03/19 ferrous sulfate 325 mg (65 mg 325 mg PO QWEEK tab 01/03/19 iron) tablet gemfibrozil 600 mg tablet 600 mg PO BID 01/03/19 isosorbide mononitrate 30 mg 30 mg PO DAILY 01/03/19 tablet,extended release 24 hr levothyroxine 137 mcg tablet 137 mcg PO DAILY 01/03/19 metoprolol tartrate 100 mg tablet 100 mg PO BID 01/03/19 omeprazole 40 mg capsule,delayed 40 mg PO DAILY 01/03/19 release potassium 99 mg tablet 99 mg PO DAILY 01/03/19 prenat.vits,licha,bcw-llml-ttpes 1 tab PO DAILY 01/03/19 furosemide 40 mg tablet 40 mg PO BID 01/08/19 Apixaban [Eliquis] 5 mg PO BID 09/23/19 Silver Sulfadiazine 1 applic TOPICAL BID PRN PRN 09/23/19 Past Medical History (Chronic Problems): Chronic Problems (Last Reviewed 03/27/19 @ 09:38 by Pooja Isabel) Abscess involving suture (Chronic) Secondary pulmonary hypertension (Chronic) RVSP 53 mmhg per echo 09/28/2018 done @ [facility] Nonrheumatic mitral valve regurgitation (Chronic) Moderate per echo 09/28/2018 done @ [facility] Essential hypertension (Chronic) CHF (congestive heart failure) (Chronic) Chronic atrial fibrillation (Chronic) Hyperlipidemia (Chronic) Surgical History: - - Hernia with mesh repair, small bowel obstruction requiring emergent surgery, tonsillectomy, gastric bypass, carpal tunnel bilateral wrist, breast lumpectomy Psychiatric History: No pertinent psych hx PERSONAL PROPERTY ASSESSOR History: No pertinent PERSONAL PROPERTY ASSESSOR history - *Family History Maternal Family History: Family History (Last Reviewed 09/23/19 @ 17:32 by NINA Koroma) Father CVA (cerebral vascular accident) Hypertension History Items: Hypertension, - - hypothyroidism Paternal Family History: Family History (Last Reviewed 09/23/19 @ 17:32 by NINA Koroma) Father CVA (cerebral vascular accident) Hypertension Lives: Alone Smoking Status: Never smoker Tobacco Use: Secondhand Alcohol: None Drugs: None Review of Systems - Review of Systems General: Denies: Fever, Night Sweats, Fatigue HEENT: Denies: Vision Change Cardiovascular: Reports: Shortness of Breath, Shortness of Breath at Rest, Shortness of Breath with Exertion, Peripheral Edema. Denies: Chest Discomfort, Orthopnea, PND, Palpitations, Lightheadedness, Dizziness, Near Syncope, Syncope Respiratory: Denies: Cough, Sputum Production, Hemoptysis Gastrointestinal: Denies: Hematemesis, Hematochezia, Melena Genitourinary: Denies: Dysuria, Hematuria Muscoloskeletal: Denies: Myalgias Skin: Reports: Rash, Wounds Neurological: Denies: Dizziness Psychiatric: Denies: Anxiety Endocrine: Denies: Heat Intolerance Hematologic/ Lymphatic: Denies: Lymph Node Enlargement Subjectve: Pleasant lady in mild respiratory distress Objective: Vital Signs Temp Pulse Resp BP Pulse Ox 97.4 F L 83 21 H 102/64 94 09/24/19 06:39 09/24/19 06:52 09/24/19 06:39 09/24/19 06:39 09/24/19 06:39 Oxygen Flow Rate (L/min) 3 Oxygen Delivery Method Nasal Cannula Weight: 270 lb 4.587 oz Body Mass Index (BMI) 47.8 Intake and Output for Last 24 Hours 09/22/19 09/23/19 09/24/19 23:59 23:59 23:59 Intake Total 70 / 70 140 / 140 Output Total 600 / 600 300 / 300 Balance -530 / -530 -160 / -160 General: Awake, Alert, Oriented x 3 HEENT: PERRL, EOMI, Sclera Non Icteric Oral: Moist Mucosa Neck: Supple, Good ROM, No Lymph Node Enlargement Lungs: Diminished Олег Bases Cardiovascular: Irregular Rhythm, Normal S1, Normal S2, No Murmurs, No Rubs, No Gallops Vascular: No Carotid Bruits, Normal Femoral Pulses, Normal Radial Pulses, Normal Dorsalis Pedal Pulse, Normal Posterior Tibial Pulses Abdomen: Bowel Sounds Present, Soft, Non Tender, No HSM, No Organomegaly Extremities: No Cyanosis, No Clubbing, Bilateral Edema +2 Musculoskeletal: No Erythema Skin: Excoriation Lymphatic: No Lymph Node Enlargement Neurological: No Focal Motor or Sensory Deficit Psych/Mental Status: Appropriate 09/23/19 15:15: WBC Cancelled, Corrected WBC Cancelled, RBC Cancelled, Hgb Cancelled, Hct Cancelled, MCV Cancelled, MCH Cancelled, MCHC Cancelled, Plt Count Cancelled, MPV Cancelled, Immature Gran % (Auto) Cancelled, Neut % (Auto) Cancelled, Lymph % (Auto) Cancelled, [place] % (Auto) Cancelled, Eos % (Auto) Cancelled, Baso % (Auto) Cancelled, Absolute Neuts (auto) Cancelled, Total Counted Cancelled, Neutrophils % (Manual) Cancelled, Band Neutrophils % Cancelled, Lymphocytes % (Manual) Cancelled, Monocytes % (Manual) Cancelled, Eosinophils % (Manual) Cancelled, Basophils % (Manual) Cancelled, Metamyelocytes % Cancelled, Myelocytes % Cancelled, Promyelocytes % Cancelled, Blast Cells % Cancelled, Plasma Cell % (Manual) Cancelled, Other Cells % Cancelled, Nucleated RBC % Cancelled 09/23/19 15:15: Sodium 141, Potassium 4.0, Chloride 104, Carbon Dioxide 32.0, Anion Gap 5, BUN 19 H, Creatinine 1.24 H, Est GFR (MDRD) Af Amer 55 L, Est GFR (MDRD) Non-Af 46 L, BUN/Creatinine Ratio 15.3, Glucose 91, Calcium 8.6, Magnes ium 2.6, Troponin I < 0.015 09/23/19 15:15: B-Natriuretic Peptide Cancelled 09/23/19 16:22: WBC 4.9, RBC 4.37, Hgb 10.1 L, Hct 37.1, MCV 84.9, MCH 23.1 L, MCHC 27.2 L, Plt Count 114 L, MPV 11.1, Immature Gran % (Auto) 0.200, Neut % (Auto) 69.7, Lymph % (Auto) 12.0 L, [place] % (Auto) 15.3 H, Eos % (Auto) 2.2, Baso % (Auto) 0.6, Absolute Neuts (auto) 3.4, Nucleated RBC % 0 09/23/19 16:22: B-Natriuretic Peptide 250.2 H 09/23/19 18:50: Troponin I < 0.015 09/23/19 21:32: Troponin I < 0.015 09/24/19 05:32: WBC 3.5 L, RBC 4.09 L, Hgb 9.8 L, Hct 36.5 L, MCV 89.2 D, MCH 24.0 L, MCHC 26.8 L, Plt Count 101 L, MPV 10.5, Immature Gran % (Auto) 0.300, Neut % (Auto) 60.8, Lymph % (Auto) 16.5 L, [place] % (Auto) 16.5 H, Eos % (Auto) 4.8, Baso % (Auto) 1.1 H, Absolute Neuts (auto) 2.1, Nucleated RBC % 0 09/24/19 05:32: Sodium 142, Potassium 3.6, Chloride 102, Carbon Dioxide 35.0 H, Anion Gap 5, BUN 18, Creatinine 1.10 H, Est GFR (MDRD) Af Amer 63, Est GFR (MDRD) Non-Af 52 L, BUN/Creatinine Ratio 16.4, Glucose 83, Calcium 8.1 L Rhythm: EKG: Atrial fibrillation with a controlled ventricular response rate of 55 bpm Assessment/Plan 1. Shortness of breath She appears to have mild shortness of breath with an elevated natruretic peptide likely secondary to diastolic heart failure. The exact precipitating etiology is not clear. It could be due to her bradycardia from the medication with the atrial fibrillation. * Recommendation would be to diurese with intravenous Lasix * Reduce the dose of the beta-lesia as well as the calcium channel lesia * Repeat echocardiogram to reassess LV ventricular function as well as valvular abnormalities * Depending on the findings of the above further recommendations will be made. * 2. Atrial fibrillation * Patient has atrial fibrillation with a controlled ventricular response rate. This is chronic. Patient has been on anticoagulation and rate control med ication. It appears that she is more bradycardic and I will reduce the dose of the beta-lesia and all the calcium channel lesia. * She will continue with anticoagulation for now but she is willing to discuss this further as she may not be able to afford the Eliquis * 3. Valvular heart disease * She does have evidence of mitral valve disease. This will be reevaluated with the echocardiogram to make sure that this is not responsible for her worsening heart failure. * 4. Chronic pedal edema * She does appear to have significant changes with regard to her legs and I suspect this is multifactorial in etiology. * 5. Hypertension * Her blood pressure appears to be under good control on the current medical therapy and this will be continued with mild changes in her blood pressure management. * * Thank you for allowing me to participate in the care of your patient. Please don't hesitate to call if any issues arise
[2019-09-24] MEDS: Isosorbide Mononitrate 30 MG Tablet PO (10:08)
[2019-09-24] MEDS: Furosemide 40 MG/4 ML Vial IV ×2 (10:08→17:19)
[2019-09-24] MEDS: 0.9% Saline Lock 10 ML Syringe IV ×2 (10:08→17:19)
[2019-09-24] MEDS: dilTIAZem CD 120 MG Capsule PO (10:08)
[2019-09-24] MEDS: Pantoprazole Sodium 40 MG Tablet PO (10:08)
[2019-09-24] MEDS: Metoprolol Tartrate 50 MG Tablet PO ×2 (10:08→21:50)
[2019-09-24] MEDS: APIXABAN 5 MG TABLET PO ×2 (10:08→21:50)
--- NOTE | 2019-09-24 10:13 | CASEMGMT ---
Addendum entered by Patrizia Gtz 09/24/19 14:48: Pt states paid $222 for Eliquis out of pocket after started on it end of July at [facility] and states was never given a 30 days free trial card. Pt states is interested in possible HHC at discharge and provided list of in-network HHC agencies as well as Eliquis 30 day trial card at this time. [place] MALENA EDEN Original Note: MALENA EDEN assessment: Face to Face with patient for initial transition planning/care coordination assessment. MALENA EDEN introduced self and role at [facility], pt voices understanding and consents to assessment at this time. Pt is sitting up in bed in no distress at this time. Pt is A/Ox4 at this time and answers all questions appropriately at this time. Care providers, pharmacy, and demographics verified at this time. Presentation: Chest pressure/heaviness that started last night-lasted for 30min Admitting dx: Diastolic CHF exacerbation w/ pulm HTN PCP: John Specialists: Srinivas cardio; Bennie head strength and conditioning coach Preferred Pharmacy: [facility] Insurance: [facility] Prescription Benefit: [facility] Living Will/HPOA: Pt states is 'in the process' of completing LW/HPOA and her nephew is taking care of it. Pt declines any further AD info at this time. LNOK: Julius Contreras, son; Livia Gutierrez, sister Living Arrangements: Pt states lives alone in apartment with 4 steps in with rail and states laundry is in basement but her grandson helps with laundry. Pt states is independent with ADL's. Transportation: Pt states drives self and states no transportations concerns at this time. DME/HHC: Pt states has the following DME: cane and working on shower chair. Pt states no further DME needed at this time. Pt states just left [facility] on 09/08/19 after being there for 12 days. Pt states no hx of HHC in the past. [facility] are in-network with [facility] and pt is aware at this time, voices understanding. Pt states she would like to go home at time of discharge. Pt states is retired. Pt states does not smoke or drink ETOH. Pt states no further concerns/needs at this time. CM to follow for home oxygen, PT/OT evals, and any further discharge planning/needs. Advised pt to ask for CM if any further questions/concerns/needs arise, voices understanding. Pt Goal: Home Plan: TBD, pending PT/OT evals and home oxygen testing. Gideon GUY CM
--- NOTE | 2019-09-24 13:06 | PCM.PROGNOTE ---
Subjective: Patient seen and examined. Reports some improvement in breathing. Diuresing well. Denies current complaints. - Physical Exam Vitals/I&O's: Vital Signs Temp Pulse Resp BP Pulse Ox 97.9 F 89 20 H 109/65 94 09/24/19 10:02 09/24/19 10:08 09/24/19 10:02 09/24/19 10:02 09/24/19 10:02 Oxygen Flow Rate (L/min) 3 Oxygen Delivery Method Nasal Cannula Weight: 270 lb 4.587 oz Body Mass Index (BMI) 47.8 Intake and Output for Last 24 Hours 09/22/19 09/23/19 09/24/19 23:59 23:59 23:59 Intake Total 70 / 70 500 / 500 Output Total 600 / 600 850 / 850 Balance -530 / -530 -350 / -350 General: Alert, Oriented x3, Cooperative, - - Appears older than stated age HEENT: Atraumatic, PERRLA, EOMI, Normocephalic Neck: Supple, No JVD, Negative Carotid Bruits Lungs: Clear to auscultation, Diminished Cardiovascular: - - Atrial fibrillation, rate controlled Abdomen: Bowel Sounds Present, Soft, Non Tender, Non-Distended Extremities: No clubbing, No cyanosis, - - Lymphedema bilateral lower extremities, right lower extremity significantly larger than left. Skin: No rashes, No breakdown, - - Bilateral lower extremity with chronic hyperpigmentation/skin changes with dryness/flaking. Midline abdominal with 2 healing wounds, some eschar noted. No drainage or erythema. Musculoskeletal: No Tenderness to Palpation of Joints or Extremities Neurological: Cranial nerves II-XII grossly intact, Neuro grossly intact Psych/Mental Status: Normal Affect, Appropriate Laboratory Results 09/23/19 15:15: WBC Cancelled, Corrected WBC Cancelled, RBC Cancelled, Hgb Cancelled, Hct Cancelled, MCV Cancelled, MCH Cancelled, MCHC Cancelled, RDW Std Deviation Cancelled, RDW Coeff of Mavis Cancelled, Plt Count Cancelled, MPV Cancelled, Immature Gran % (Auto) Cancelled, Neut % (Auto) Cancelled, Lymph % (Auto) Cancelled, [place] % (Auto) Cancelled, Eos % (Auto) Cancelled, Baso % (Auto) Cancelled, Absolute Neuts (auto) Cancelled, Absolute Lymphs (auto) Cancelled, Total Counted Cancelled, Neutrophils % (Manual) Cancelled, Band Neutrophils % Cancelled, Lymphocytes % (Manual) Cancelled, Monocytes % (Manual) Cancelled, Eosinophils % (Manual) Cancelled, Basophils % (Manual) Cancelled, Metamyelocytes % Cancelled, Myelocytes % Cancelled, Promyelocytes % Cancelled, Blast Cells % Cancelled, Plasma Cell % (Manual) Cancelled, Other Cells % Cancelled, Nucleated RBC % Cancelled, Nucleated RBCs/100 WBC Cancelled, Differential Comment Cancelled, Diff Path Review Cancelled, Hypersegmented Neuts Cancelled, Atypical Lymphocytes Cancelled, Reactive Lymphocytes Cancelled, Smudge Cells Cancelled, Toxic Granulation Cancelled, Toxic Vacuolation Cancelled, Dohle Bodies Cancelled, Antione Rods Cancelled, Platelet Estimate Cancelled, Plt Morphology Comment Cancelled, RBC Morphology Cancelled, Polychromasia Cancelled, Hypochromasia Cancelled, Poikilocytosis Cancelled, Basophilic Stippling Cancelled, Anisocytosis Cancelled, Microcytosis Cancelled, Macrocytosis Cancelled, Spherocytes Cancelled, Sickle Cells Cancelled, Target Cells Cancelled, Tear Drop Cells Cancelled, Ovalocytes Cancelled, Stomatocytes Cancelled, [place]ahan-[place] Bodies Cancelled, John Cells Cancelled, Bite Cells Cancelled, Crenated Cell Cancelled, Acanthocytes (Spur) Cancelled, Rouleaux Cancelled, Schistocytes Cancelled 09/23/19 15:15: Sodium 141, Potassium 4.0, Chloride 104, Carbon Dioxide 32.0, Anion Gap 5, BUN 19 H, Creatinine 1.24 H, Estim Creat Clear Calc 35.92, Est GFR (MDRD) Af Amer 55 L, Est GFR (MDRD) Non-Af 46 L, BUN/Creatinine Ratio 15.3, Glucose 91, Calcium 8.6, Magnesium 2.6, Troponin I < 0.015 09/23/19 15:15: B-Natriuretic Peptide Cancelled 09/23/19 16:22: WBC 4.9, RBC 4.37, Hgb 10.1 L, Hct 37.1, MCV 84.9, MCH 23.1 L, MCHC 27.2 L, RDW Std Deviation 66.0 H, RDW Coeff of Mavis 21.5 H, Plt Count 114 L, MPV 11.1, Immature Gran % (Auto) 0.200, Neut % (Auto) 69.7, Lymph % (Auto) 12.0 L, [place] % (Auto) 15.3 H, Eos % (Auto) 2.2, Baso % (Auto) 0.6, Absolute Neuts (auto) 3.4, Absolute Lymphs (auto) 0.59 L, Nucleated RBC % 0, Differential Comment SCANNED 09/23/19 16:22: B-Natriuretic Peptide 250.2 H 09/23/19 18:50: Troponin I < 0.015 09/23/19 21:32: Troponin I < 0.015 09/24/19 05:32: WBC 3.5 L, RBC 4.09 L, Hgb 9.8 L, Hct 36.5 L, MCV 89.2 D, MCH 24.0 L, MCHC 26.8 L, RDW Std Deviation 70.1 H, RDW Coeff of Mavis 21.7 H, Plt Count 101 L, MPV 10.5, Immature Gran % (Auto) 0.300, Neut % (Auto) 60.8, Lymph % (Auto) 16.5 L, [place] % (Auto) 16.5 H, Eos % (Auto) 4.8, Baso % (Auto) 1.1 H, Absolute Neuts (auto) 2.1, Absolute Lymphs (auto) 0.58 L, Nucleated RBC % 0, Differential Comment SCANNED, Platelet Estimate SLT DEC, Hypochromasia 1+, Macrocytosis 1+, Stomatocytes 1+ 09/24/19 05:32: Sodium 142, Potassium 3.6, Chloride 102, Carbon Dioxide 35.0 H, Anion Gap 5, BUN 18, Creatinine 1.10 H, Estim Creat Clear Calc 38.71, Est GFR (MDRD) Af Amer 63, Est GFR (MDRD) Non-Af 52 L, BUN/Creatinine Ratio 16.4, Glucose 83, Calcium 8.1 L Current Medications Apixaban (Eliquis) 5 mg PO BID [facility] Last Admin: 09/24/19 10:08 Dose: 5 mg Documented by: Diltiazem HCl (Cardizem Cd) 120 mg PO DAILY [facility] Last Admin: 09/24/19 10:08 Dose: 120 mg Documented by: Ferrous Sulfate (Ferrous Sulfate) 325 mg PO Mo [facility] Furosemide (Lasix) 40 mg IV BID@1000,1800 [facility] Last Admin: 09/24/19 10:08 Dose: 40 mg Documented by: Gemfibrozil (Lopid) 600 mg PO BIDAC [facility] Last Admin: 09/24/19 07:03 Dose: 600 mg Documented by: Isosorbide Mononitrate (Imdur) 30 mg PO DAILY [facility] Last Admin: 09/24/19 10:08 Dose: 30 mg Documented by: Levothyroxine Sodium (Synthroid) 137 mcg PO DAILY@0600 [facility] Last Admin: 09/24/19 07:03 Dose: 137 mcg Documented by: Metoprolol Tartrate (Lopressor (Beta Michelle)) 50 mg PO BID [facility] Last Admin: 09/24/19 10:08 Dose: 50 mg Documented by: Nitroglycerin (Nitrostat) 0.4 mg SUBLINGUAL Q5M PRN PRN Reason: CARDIAC/CHEST PAIN Pantoprazole Sodium (Protonix) 40 mg PO DAILY [facility] Last Admin: 09/24/19 10:08 Dose: 40 mg Documented by: Medical Necessity - Tobacco Use Smoking Status: Never smoker Tobacco Use: Secondhand Assessment/Plan 1. Acute hypoxic respiratory insufficiency secondary to acute on chronic heart failure with preserved ejection fraction-patient reports 30+ pound weight gain over the past 4 to 6 weeks. BNP 250. Chest x-ray without acute process. Patient oxygen 81% on room air on admission. Continue supplement oxygen to maintain O2 at or above 90%. Patient will need walking pulse ox prior to discharge. Strict I&O. Daily weight. Shantanu wraps bilateral lower extremities. Continue IV Lasix. Prior echo [facility] September 2018 demonstrated EF 45 to 50%, moderate mitral annular calcification with rheumatic appearing mitral valve leaflets with mild leaflet thickening and calcification with restricted mobility. Mild mitral stenosis and mild mitral regurgitation. RVSP estimated to be 53 mmHg, consistent with moderate pulmonary hypertension. Repeat echocardiogram demonstrates an EF of 55%, rheumatic appearing mitral valve, mild to moderate mitral valve insufficiency, mild pulmonary hypertension, stage III diastolic dysfunction. Cardiology following. 2. Chronic lymphedema-lower extremity duplex ultrasound 08/20/2019 negative for DVT at outside facility. Shantanu wraps lower extremities. Elevate. Refer to wound center as outpatient for lymphedema management. 3. Chest pressure-EKG without acute ischemia. Enzymes negative. 4. Valvular heart disease-Per echo as noted above. 5. Recent diagnosis PE-on anticoagulation with Eliquis. 6. Chronic atrial fibrillation-follows with Dr. Espino. History of cardioversion x4 that were unsuccessful. Previously on Coumadin for 15 years however discontinued due to GI bleed. Now on Eliquis related to recent PE. Patient A. fib in ER with slow rate, 40s to 50s. Patient is on high-dose beta-michelle, metoprolol 100 mg twice daily. Will reduce this to metoprolol 50 mg twice daily. Home Cardizem regimen reduced to 120 mg p.o. daily as well. 7. Suspected chronic kidney disease stage III-unknown prior labs for comparison. Appears at baseline. Trend BMP. 8. History of GI bleed-Coumadin previously discontinued. Now on Eliquis related to PE. 9. Hypertension-stable, continue Cardizem, isosorbide. Metoprolol reduced as noted above. 10. Hyperlipidemia-continue gemfibrozil regimen. 11. Morbid obesity-previous gastric bypass. Encouraged diet and lifestyle modifications. 12. Midline chronic abdominal wounds-do not appear acutely infected. Some areas of echar. Consult wound RN. 13. Large pelvic mass-recent CT of abdomen and pelvis 08/20/2019 at [facility] showed a large pelvic mass which appeared to be of right ovarian origin displacing the uterus. Undergoing outpatient evaluation with Dr. Avery for neoplastic work-up. CT also noted indeterminate lesion in the right kidney, concerning for neoplasm. Patient states she had follow-up with Dr. Avery yesterday. Ultrasound was completed and patient reports everything was found to be benign and no further work-up is necessary. 14. Chronic iron deficiency anemia- continue iron supplementation, trend CBC. DVT prophylaxis-Eliquis CODE STATUS: Discussed with patient in length including differences in full code, DNR CCA and DNR CC. Patient would like to be DNR CCA, okay with intubation if for short-term. This patient was seen by NINA Koroma under the supervision of Dr. Hernandez.
--- NOTE | 2019-09-24 15:20 | CHAPLAIN ---
Type of Pastoral Visit _x__ Initial Visit ___ Follow-up Visit ___ On-call Visit ___ General Patient Visit ___ Spiritual Assessment ___ Family Conference ___ Bereavement ___ Rapid Response ___ Code Blue ___ Other (describe below) Pastoral Care Referral From _x__ Patient ___ Family ___ Nurse ___ Physician ___ Senior Etl Developer ___ [place] [employer] [place] Supervisor ___ Other (describe below) Sacrament/Intervention _x__ Active listening ___ Anointing ___ Zoroastrian ___ Bereavement ___ Communion ___ Silvia exploration ___ _x__ Life review _x__ Prayer ___ Reconciliation ___ Sacrament of Sick _x__ Supportive presence ___ Wedding ___ Other (describe below) Pastoral Comments
--- NOTE | 2019-09-24 23:30 | ED.RN ---
Patient called RN to room, states feeling like she cannot catch her breath. resp 24-26 per min. assisted to reposition. increased O2 to 4L NC. Pt stated she does not wear bipap at home but that she has worn it before in hospital. Notified resp therapy and they assessed pt. Noted sats to be 96% on 4L and pt stated she was starting to feel better.
[2019-09-25] VITALS (21 sets, daily range): BP systolic 103–131; BP diastolic 51–70; PULSE 79–104; RESP 12–38; TEMP 36.4–37.1; O2SAT 88–97
[2019-09-25] MEDS: Furosemide 40 MG/4 ML Vial IV ×4 (02:43→22:35)
[2019-09-25] MEDS: Levothyroxine 137 MCG Tablet PO (05:24)
[2019-09-25 06:04] LABS: Hematocrit 40.9 % (37-47); Hemoglobin 10.7 g/dL (12.0-15.0); Mean Corp Hgb Conc 26.2 g/dL (32-36); Mean Corpuscular Hgb 23.6 pg (27.0-32.0); Mean Corpuscular Volume 90.3 fL (81-99); Mean Platelet Vol. 11.7 fl (6.2-12.0); POSITIVE MORPHOLOGY YES; Platelet Count 107 K/mm3 (150-450); RBC Distribution Width SD 68.2 fl (35.1-43.9); Red Blood Count 4.53 M/mm3 (4.2-5.4); White Blood Count 8.3 K/mm3 (4.4-11.0)
[2019-09-25 06:29] LABS: Scan Indicated on CBC? Y/N YES- FLAGS NOTED
[2019-09-25 06:47] LABS: BUN 19 mg/dL (7-18); Glucose 113 mg/dL (74-106)
[2019-09-25 06:48] LABS: Anion Gap 5 (5-15); BUN/Creat Ratio 15.8 RATIO (10-20); Calcium,Total 8.3 mg/dL (8.5-10.1); Chloride 98 mmol/L (98-107); EST Glomerular Filtration Rate 47 mL/min (>60); Est Glom Filt Rate - Afr Amer 57 mL/min (>60); Estimated Creatinine Clearance 37.12 ml/min; Potassium 3.7 mmol/L (3.5-5.1); Sodium Level 141 mmol/L (136-145)
[2019-09-25] MEDS: Gemfibrozil 600 MG Tablet PO ×2 (07:17→17:29)
--- NOTE | 2019-09-25 08:49 | PCM.PN.CARD ---
Subjectve: Patient seen and examined, currently on BiPAP therapy and tolerating it fairly well. Telemetry showed atrial fibrillation with controlled ventricular response. Objective: Vital Signs Temp Pulse Resp BP Pulse Ox 97.7 F L 88 32 H 109/66 96 09/25/19 07:15 09/25/19 08:02 09/25/19 08:02 09/25/19 07:15 09/25/19 08:27 Oxygen Flow Rate (L/min) 3 Oxygen Delivery Method Nasal Cannula Weight: 268 lb 11.896 oz Body Mass Index (BMI) 47.8 Intake and Output for Last 24 Hours 09/23/19 09/24/19 09/25/19 23:59 23:59 23:59 Intake Total 70 / 70 800 / 1050 450 / 450 Output Total 600 / 600 1850 / 2750 1400 / 1400 Balance -530 / -530 -1050 / -1700 -950 / -950 General: Awake, Alert, Oriented x 3 HEENT: PERRL, EOMI, Sclera Non Icteric Neck: Supple, Good ROM, No Lymph Node Enlargement Lungs: Diminished Олег Bases Cardiovascular: Irregular Rhythm, Normal S2, No Murmurs, No Rubs, No Gallops Murmur Murmur: Grade 2/6, Holosystolic Vascular: No Carotid Bruits, Normal Femoral Pulses, Normal Radial Pulses, Normal Dorsalis Pedal Pulse, Normal Posterior Tibial Pulses Abdomen: Bowel Sounds Present, Soft, Non Tender, No HSM, No Organomegaly Extremities: No Cyanosis, No Clubbing, No edema Neurological: No Focal Motor or Sensory Deficit 09/25/19 05:25: WBC 8.3, RBC 4.53, Hgb 10.7 L, Hct 40.9, MCV 90.3, MCH 23.6 L, MCHC 26.2 L, Plt Count 107 L, MPV 11.7 09/25/19 05:25: Sodium 141, Potassium 3.7, Chloride 98, Carbon Dioxide 38.0 H, Anion Gap 5, BUN 19 H, Creatinine 1.20 H, Est GFR (MDRD) Af Amer 57 L, Est GFR (MDRD) Non-Af 47 L, BUN/Creatinine Ratio 15.8, Glucose 113 H, Calcium 8.3 L Rhythm: EKG: ECHO:Normal LV size. Left ventricular systolic function is normal. The estimated ejection fraction is 55 %. Mitral valve doming/Hockey Sticking Rheumatic appearing Mild-Moderate (1-2+) mitral valve insufficiency. Mild pulmonary hypertension. Stage 3 diastolic dysfunction. Contrast injection was performed. Stress Test: Cardiac Cath: PCI: CT Surgery: Holter monitor: EPS: PPM: CXR: Chest CT Scan: Medical Necessity - Tobacco Use Smoking Status: Never smoker Tobacco Use: Secondhand Assessment/Plan 1. Atrial fibrillation: Patient is controlled ventricular response, echocardiogram reviewed and shows severe left atrial large right with moderate mitral vegetation, and LVEF around 50%. Mild pulmonary pretension noted. The patient has severe pachydermia of her lower extremities. Recommend continuing gentle diuresis with IV Lasix to avoid acute on chronic renal failure. No recommendations for catheterization or stress testing at this time. Continue full anticoagulation with Eliquis, and continue heart rate control with combination of calcium channel lesia and beta-lesia therapy. The patient is not a surgical candidate at this time for aortic valve replacement or mitral valve repair surgery. Continue BiPAP therapy for oxygenation and ventilation purposes. 2. Thank you very much for the opportunity to precipitate in the cardiac care of your patient. Code Visit Inpatient E&M: 25348 Subs Hosp L2
--- NOTE | 2019-09-25 08:50 | RAD_ITS ---
STUDY: X-RAY CHEST REASON FOR EXAM: Female, 68 years old. Increased sob TECHNIQUE: Single AP portable view of the chest. COMPARISON: Comparison is made with prior examination of September 23, 2019. FINDINGS: EKG electrodes are seen. Since prior study, there has been progressive vascular congestion and CHF. There is no demonstrated pleural abnormality. There is moderate cardiac enlargement. Normal mediastinum and chloé. Normal visualized pulmonary arteries. There is atherosclerotic tortuosity of the aortic arch and descending thoracic aorta. There are diffuse degenerative changes of the visualized thoracic spine. Normal visualized ribs, clavicles, and shoulders. There is no demonstrated abnormality of the visualized soft tissue structures of the upper abdomen. RAD/Chest 1 View (Portable) IMPRESSION: Cardiomegaly. Progressive CHF. Electronically Signed: Lonnie Mazariegos, at 9:28 EST , Service support ,
[2019-09-25] MEDS: Pantoprazole Sodium 40 MG Tablet PO (09:21)
[2019-09-25] MEDS: Isosorbide Mononitrate 30 MG Tablet PO (09:21)
[2019-09-25] MEDS: dilTIAZem CD 120 MG Capsule PO (09:21)
[2019-09-25] MEDS: Metoprolol Tartrate 50 MG Tablet PO ×2 (09:21→22:36)
[2019-09-25] MEDS: 0.9% Saline Lock 10 ML Syringe IV ×4 (09:21→22:40)
[2019-09-25] MEDS: APIXABAN 5 MG TABLET PO ×2 (09:21→22:35)
--- NOTE | 2019-09-25 09:58 | NURSING ---
skin photo: left lower leg
--- NOTE | 2019-09-25 09:58 | NURSING ---
skin photo: right lower leg
--- NOTE | 2019-09-25 09:59 | NURSING ---
wound photo: abdomen
--- NOTE | 2019-09-25 11:16 | PCM.PROGNOTE ---
Subjective: Patient seen and examined. Patient reports increased shortness of breath overnight. Chest x-ray completed which shows progressive CHF. Breathing improved with this morning. Denies other current complaints. - Physical Exam Vitals/I&O's: Vital Signs Temp Pulse Resp BP Pulse Ox 97.6 F L 89 20 H 131/51 H 95 09/25/19 09:17 09/25/19 09:21 09/25/19 09:17 09/25/19 09:17 09/25/19 09:17 Oxygen Flow Rate (L/min) 3 Oxygen Delivery Method Nasal Cannula Weight: 268 lb 11.896 oz Body Mass Index (BMI) 47.8 Intake and Output for Last 24 Hours 09/23/19 09/24/19 09/25/19 23:59 23:59 23:59 Intake Total 70 / 70 800 / 1050 450 / 450 Output Total 600 / 600 1850 / 2750 1400 / 1400 Balance -530 / -530 -1050 / -1700 -950 / -950 General: Alert, Oriented x3, Cooperative, - - Appears older than stated age HEENT: Atraumatic, PERRLA, EOMI, Normocephalic Neck: Supple, No JVD, Negative Carotid Bruits Lungs: Clear to auscultation, Diminished Cardiovascular: - - Atrial fibrillation, rate controlled Abdomen: Bowel Sounds Present, Soft, Non Tender, Non-Distended, Obese Extremities: No clubbing, No cyanosis, - - Lymphedema bilateral lower extremities, right extremity significantly larger than left. Skin: No rashes, No breakdown, - - Bilateral lower extremity with chronic hyperpigmentation/skin changes with dryness/flaking. Midline abdominal with 2 healing wounds, some eschar noted. No drainage or erythema. Musculoskeletal: No Tenderness to Palpation of Joints or Extremities Neurological: Cranial nerves II-XII grossly intact, Neuro grossly intact Psych/Mental Status: Normal Affect, Appropriate Laboratory Results 09/25/19 05:25: WBC 8.3, RBC 4.53, Hgb 10.7 L, Hct 40.9, MCV 90.3, MCH 23.6 L, MCHC 26.2 L, RDW Std Deviation 68.2 H, RDW Coeff of Mavis 21.0 H, Plt Count 107 L, MPV 11.7, Differential Comment 09/25/19 05:25: Sodium 141, Potassium 3.7, Chloride 98, Carbon Dioxide 38.0 H, Anion Gap 5, BUN 19 H, Creatinine 1.20 H, Estim Creat Clear Calc 37.12, Est GFR (MDRD) Af Amer 57 L, Est GFR (MDRD) Non-Af 47 L, BUN/Creatinine Ratio 15.8, Glucose 113 H, Calcium 8.3 L Current Medications Apixaban (Eliquis) 5 mg PO BID [facility] Last Admin: 09/25/19 09:21 Dose: 5 mg Documented by: Diltiazem HCl (Cardizem Cd) 120 mg PO DAILY [facility] Last Admin: 09/25/19 09:21 Dose: 120 mg Documented by: Ferrous Sulfate (Ferrous Sulfate) 325 mg PO Mo [facility] Furosemide (Lasix) 40 mg IV Q8 [facility] Last Admin: 09/25/19 09:21 Dose: 40 mg Documented by: Gemfibrozil (Lopid) 600 mg PO BIDAC [facility] Last Admin: 09/25/19 07:17 Dose: 600 mg Documented by: Isosorbide Mononitrate (Imdur) 30 mg PO DAILY [facility] Last Admin: 09/25/19 09:21 Dose: 30 mg Documented by: Levothyroxine Sodium (Synthroid) 137 mcg PO DAILY@0600 [facility] Last Admin: 09/25/19 05:24 Dose: 137 mcg Documented by: Metoprolol Tartrate (Lopressor (Beta Michelle)) 50 mg PO BID [facility] Last Admin: 09/25/19 09:21 Dose: 50 mg Documented by: Nitroglycerin (Nitrostat) 0.4 mg SUBLINGUAL Q5M PRN PRN Reason: CARDIAC/CHEST PAIN Nutritional Formula (Boris - [place] Flavor) 1 packet PO BIDCM [facility] Last Admin: 09/25/19 09:19 Dose: Not Given Documented by: Pantoprazole Sodium (Protonix) 40 mg PO DAILY [facility] Last Admin: 09/25/19 09:21 Dose: 40 mg Documented by: Medical Necessity - Tobacco Use Smoking Status: Never smoker Tobacco Use: Secondhand Assessment/Plan 1. Acute hypoxic respiratory insufficiency secondary to acute on chronic heart failure with preserved ejection fraction-patient reports 30+ pound weight gain over the past 4 to 6 weeks. BNP 250. Chest x-ray on admission without acute process. Patient oxygen 81% on room air on admission. Continue supplement oxygen to maintain O2 at or above 90%. Patient will need walking pulse ox prior to discharge. Strict I&O. Daily weight. Prior echo [facility] September 2018 demonstrated EF 45 to 50%, moderate mitral annular calcification with rheumatic appearing mitral valve leaflets with mild leaflet thickening and calcification with restricted mobility. Mild mitral stenosis and mild mitral regurgitation. RVSP estimated to be 53 mmHg, consistent with moderate pulmonary hypertension. Repeat echocardiogram demonstrates an EF of 55%, rheumatic appearing mitral valve, mild to moderate mitral valve insufficiency, mild pulmonary hypertension, stage III diastolic dysfunction. Cardiology following. Repeat chest x-ray obtained due to increased shortness of breath which showed progressive CHF. Lasix increased to 40 mg IV every 8 hours. 2. Chronic lymphedema-lower extremity duplex ultrasound 08/20/2019 negative for DVT at outside facility. [facility]. Refer to wound center as outpatient for lymphedema management. 3. Chest pressure-EKG without acute ischemia. Enzymes negative. 4. Valvular heart disease-Per echo as noted above. 5. Recent diagnosis PE-on anticoagulation with Eliquis. 6. Chronic atrial fibrillation-follows with Dr. Espino. History of cardioversion x4 that were unsuccessful. Previously on Coumadin for 15 years however discontinued due to GI bleed. Now on Eliquis related to recent PE. Patient A. fib in ER with slow rate, 40s to 50s. Patient previously on high-dose beta-michelle, metoprolol 100 mg twice daily. Reduced to metoprolol 50 mg twice daily. Home Cardizem regimen reduced to 120 mg p.o. daily as well. Bradycardia improved. 7. Suspected chronic kidney disease stage III-unknown prior labs for comparison. Appears at baseline. Trend BMP. 8. History of GI bleed-Coumadin previously discontinued. Now on Eliquis related to PE. 9. Hypertension-stable, continue Cardizem, isosorbide. Metoprolol reduced as noted above. 10. Hyperlipidemia-continue gemfibrozil regimen. 11. Morbid obesity-previous gastric bypass. Encouraged diet and lifestyle modifications. 12. Midline chronic abdominal wounds-do not appear acutely infected. Some areas of echar. Consult wound RN. 13. Large pelvic mass-recent CT of abdomen and pelvis 08/20/2019 at [facility] showed a large pelvic mass which appeared to be of right ovarian origin displacing the uterus. Undergoing outpatient evaluation with Dr. Avery for neoplastic work-up. CT also noted indeterminate lesion in the right kidney, concerning for neoplasm. Patient states she had follow-up with Dr. Avery yesterday. Ultrasound was completed and patient reports everything was found to be benign and no further work-up is necessary. 14. Chronic iron deficiency anemia- continue iron supplementation, trend CBC. DVT prophylaxis-Eliquis CODE STATUS: Discussed with patient in length including differences in full code, DNR CCA and DNR CC. Patient would like to be DNR CCA, okay with intubation if for short-term. Discharge planning: Possible SNF when medically stable, follow PT/OT. This patient was seen by NINA Koroma under the supervision of Dr. Hernandez.
--- NOTE | 2019-09-25 12:43 | CASEMGMT ---
Per SHERIFF DETECTIVE patient is stating she needs to go somewhere for rehab at d/c. SONIA printed a list of in network facilities. SW met with patient, introduced self and role at [facility]. SW asked patient if she knew were she would want to go for rehab. She said she was not sure. SW gave her a list of facilities that are in network with her insurance and within 30 miles of her zip code. SONIA told her to look over the list and SW will check back. SONIA called [facility] as patient was recently there for rehab. Per Marta at [facility] patient was there from 08-27-2019 to 09-09-2019. Her insurance cut her so she was discharged. Brandi OLIVER MSW
--- NOTE | 2019-09-25 14:55 | CASEMGMT ---
SW checked back with patient regarding where she would like to go at d/c. She said she is not sure yet and will have to look at the list. She said she will probably go with a facility closer to [place] as her son often goes to [place]. SONIA told her SW will check back with her tomorrow. Plan: SNF pending patient picking a facility, facility accepting, and insurance approval. Brandi OLIVER MSW
--- NOTE | 2019-09-25 23:23 | CPS ---
increased BiPAP pressures to increase pts tidal volumes
[2019-09-26] VITALS (18 sets, daily range): BP systolic 95–120; BP diastolic 48–66; PULSE 73–101; RESP 12–29; TEMP 36.6–37.1; O2SAT 90–96
[2019-09-26 06:04] LABS: Anion Gap 5 (5-15); BUN 21 mg/dL (7-18); BUN/Creat Ratio 19.6 RATIO (10-20); Calcium,Total 8.1 mg/dL (8.5-10.1); Chloride 98 mmol/L (98-107); Creatinine, Serum 1.07 mg/dL (0.55-1.02); EST Glomerular Filtration Rate 54 mL/min (>60); Est Glom Filt Rate - Afr Amer 65 mL/min (>60); Estimated Creatinine Clearance 41.63 ml/min; Glucose 113 mg/dL (74-106); Potassium 3.3 mmol/L (3.5-5.1); Sodium Level 141 mmol/L (136-145)
[2019-09-26] MEDS: Levothyroxine 137 MCG Tablet PO (06:37)
[2019-09-26] MEDS: Furosemide 40 MG/4 ML Vial IV ×2 (06:37→17:03)
[2019-09-26] MEDS: 0.9% Saline Lock 10 ML Syringe IV ×2 (06:37→17:03)
[2019-09-26] MEDS: Gemfibrozil 600 MG Tablet PO ×2 (06:38→17:03)
[2019-09-26] MEDS: dilTIAZem CD 120 MG Capsule PO (09:02)
[2019-09-26] MEDS: Isosorbide Mononitrate 30 MG Tablet PO (09:02)
[2019-09-26] MEDS: Metoprolol Tartrate 50 MG Tablet PO ×2 (09:03→21:46)
[2019-09-26] MEDS: Pantoprazole Sodium 40 MG Tablet PO (09:03)
[2019-09-26] MEDS: APIXABAN 5 MG TABLET PO ×2 (09:03→21:46)
--- NOTE | 2019-09-26 09:25 | CASEMGMT ---
Patient was not sure which facility in [place]. SW obtained the star ratings from Medicare's website. SW then spoke with patient and told her this information. She was okay with SW starting with the facility that had 4 stars and then the facility that had 3 stars next. [facility] was the 4 star facility. SW called [place], but they are full. SW then called [facility] in [place] and left a voice mail for admissions requesting a return call. Brandi OLIVER MSW
--- NOTE | 2019-09-26 09:53 | CASEMGMT ---
SONIA received a return call from Ivis at [facility]. She said they have beds. Their fax number is [phone]. SONIA faxed referral to [facility]. Await their response. Brandi GAINES
--- NOTE | 2019-09-26 11:30 | CASEMGMT ---
SONIA received a call from round corner cutter operator at [facility] and she asked SW about patient's wounds, SW read wound nurse notes to her. She asked why patient is not going back to same facility and SW told her she felt like they did not help her. She said they are meeting about her now. About 2 minutes later OSNIA received a call from Ivis in admissions at [facility] and they are declining patient due to medical costs. SONIA will check back with patient. Brandi OLIVER MSW
--- NOTE | 2019-09-26 11:55 | CASEMGMT ---
SW spoke with patient and let her know about the 2 nursing homes that referrals were made to. SW asked where she would like SW to try next. She picked 3 facilities off of the list. Student SW called next facility, [facility] with referral. Referral was also faxed. Await response. Brandi GAINES
--- NOTE | 2019-09-26 13:37 | PN.CARD_ITS ---
Subjectve: Patient with marginally improved breathing, still with conversational dyspnea. Chest x-ray reviewed which demonstrates improving pulmonary edema. Negative diuresis ongoing. Off of CPAP today, but will use it periodically. No chest pain or anginal symptoms. Telemetry shows atrial fibrillation with controlled ventricular response. Objective: Vital Signs Temp Pulse Resp BP Pulse Ox 97.9 F 73 20 H 101/55 L 94 09/26/19 11:00 09/26/19 11:00 09/26/19 11:00 09/26/19 11:00 09/26/19 11:00 Oxygen Flow Rate (L/min) 5 Oxygen Delivery Method Bi-pap Weight: 258 lb 13.163 oz Body Mass Index (BMI) 47.8 Intake and Output for Last 24 Hours 09/24/19 09/25/19 09/26/19 23:59 23:59 23:59 Intake Total 800 / 1050 1230 / 1230 460 / 460 Output Total 1850 / 2750 4050 / 4050 1050 / 1050 Balance -1050 / -1700 -2820 / -2820 -590 / -590 General: Awake, Alert, Oriented x 3 HEENT: PERRL, EOMI, Sclera Non Icteric Neck: Supple, Good ROM, No Lymph Node Enlargement Lungs: Clear to auscultation Cardiovascular: Irregular Rhythm, Normal S1, Normal S2, No Murmurs, No Rubs, No Gallops Vascular: No Carotid Bruits, Normal Femoral Pulses, Normal Radial Pulses, Normal Dorsalis Pedal Pulse, Normal Posterior Tibial Pulses Abdomen: Bowel Sounds Present, Soft, Non Tender, No HSM, No Organomegaly Extremities: No Cyanosis, No Clubbing, No edema Neurological: No Focal Motor or Sensory Deficit 09/26/19 05:06: Sodium 141, Potassium 3.3 L, Chloride 98, Carbon Dioxide 38.0 H, Anion Gap 5, BUN 21 H, Creatinine 1.07 H, Est GFR (MDRD) Af Amer 65, Est GFR (MDRD) Non-Af 54 L, BUN/Creatinine Ratio 19.6, Glucose 113 H, Calcium 8.1 L Rhythm: EKG: ECHO: Stress Test: Cardiac Cath: PCI: CT Surgery: Holter monitor: EPS: PPM: CXR: Chest CT Scan: Medical Necessity - Tobacco Use Smoking Status: Never smoker Tobacco Use: Secondhand Assessment/Plan 1. Atrial fibrillation: Patient is controlled ventricular response, echoc ardiogram reviewed and shows severe left atrial large right with moderate mitral regurgitation, and LVEF around 50%. Mild pulmonary pretension noted. The patient has severe pachydermia of her right lower remedy, and 2+ left lower extremity edema which is improving. Rest x-ray reviewed which demonstrates cardiomegaly but no pleural effusions. Recommend continuing gentle diuresis with IV Lasix to avoid acute on chronic renal failure. As her bicarbonate is increasing, I agree with decreasing her IV Lasix to twice daily dosing. Not believe she requires metolazone or IV drip at this time. Would recommend a negative diuresis of at least 1 to 2 L/day to avoid acute on chronic renal insufficiency. No recommendations for catheterization or stress testing at this time. Continue full anticoagulation with Eliquis, and continue heart rate control with combination of calcium channel lesia and beta-lesia therapy. Unfortunately due to 2 episodes of severe GI bleeding in the past on Coumadin, she is not a good Coumadin candidate. Would request financial assistance vis-?-vis her insurance company to assist with cost of Eliquis. Consider social work consultation. The patient is not a surgical candidate at this time for aortic valve replacement or mitral valve repair surgery. Continue BiPAP therapy for oxygenation and ventilation purposes. 2. Thank you very much for the opportunity to precipitate in the cardiac care of your patient. Discussed with Isaac Serrano. Inpatient E&M: 83469 Subs Hosp L2
--- NOTE | 2019-09-26 14:09 | PCM.PN.HOSP ---
Reason for Visit: SOB Subjective: SOB improved. using bipap qhs and with naps. ongoing le edema R>L (lymphedema). No CP, no palp. No cough. No fever/chills. No nausea vomiting diarrhea. Vitals/I&O's: Vital Signs Temp Pulse Resp BP Pulse Ox 97.9 F 73 20 H 101/55 L 94 09/26/19 11:00 09/26/19 11:00 09/26/19 11:00 09/26/19 11:00 09/26/19 11:00 Oxygen Flow Rate (L/min) 5 Oxygen Delivery Method Bi-pap Weight: 258 lb 13.163 oz Body Mass Index (BMI) 47.8 Intake and Output for Last 24 Hours 09/24/19 09/25/19 09/26/19 23:59 23:59 23:59 Intake Total 800 / 1050 1230 / 1230 460 / 460 Output Total 1850 / 2750 4050 / 4050 1050 / 1050 Balance -1050 / -1700 -2820 / -2820 -590 / -590 General: Alert, Oriented x3, Cooperative HEENT: Atraumatic, PERRLA, EOMI, Normocephalic Neck: Supple, No JVD, Negative Carotid Bruits Lungs: Diminished, Rales - L>R Cardiovascular: Regular rate, No murmurs Abdomen: Bowel Sounds Present, Soft, Non Tender Extremities: Capillary Refill Less than 3 Seconds, Edema - lymphedema R>L Skin: No rashes, No breakdown Musculoskeletal: No Tenderness to Palpation of Joints or Extremities Neurological: Cranial nerves II-XII grossly intact Psych/Mental Status: Normal Affect, Appropriate, Alert and oriented to time, place, person, mood and affect Laboratory Results 09/26/19 05:06: Sodium 141, Potassium 3.3 L, Chloride 98, Carbon Dioxide 38.0 H, Anion Gap 5, BUN 21 H, Creatinine 1.07 H, Estim Creat Clear Calc 41.63, Est GFR (MDRD) Af Amer 65, Est GFR (MDRD) Non-Af 54 L, BUN/Creatinine Ratio 19.6, Glucose 113 H, Calcium 8.1 L Current Medications Apixaban (Eliquis) 5 mg PO BID [facility] Last Admin: 09/26/19 09:03 Dose: 5 mg Documented by: Diltiazem HCl (Cardizem Cd) 120 mg PO DAILY [facility] Last Admin: 09/26/19 09:02 Dose: 120 mg Documented by: Ferrous Sulfate (Ferrous Sulfate) 325 mg PO Mo [facility] Furosemide (Lasix) 40 mg IV BID@1000,1800 [facility] Last Admin: 09/26/19 10:05 Dose: Not Given Documented by: Gemfibrozil (Lopid) 600 mg PO BIDAC [facility] Last Admin: 09/26/19 06:38 Dose: 600 mg Documented by: Isosorbide Mononitrate (Imdur) 30 mg PO DAILY [facility] Last Admin: 09/26/19 09:02 Dose: 30 mg Documented by: Levothyroxine Sodium (Synthroid) 137 mcg PO DAILY@0600 [facility] Last Admin: 09/26/19 06:37 Dose: 137 mcg Documented by: Metoprolol Tartrate (Lopressor (Beta Michelle)) 50 mg PO BID [facility] Last Admin: 09/26/19 09:03 Dose: 50 mg Documented by: Nitroglycerin (Nitrostat) 0.4 mg SUBLINGUAL Q5M PRN PRN Reason: CARDIAC/CHEST PAIN Nutritional Formula (Boris - [place] Flavor) 1 packet PO BIDCM [facility] Last Admin: 09/26/19 09:02 Dose: 1 packet Documented by: Pantoprazole Sodium (Protonix) 40 mg PO DAILY [facility] Last Admin: 09/26/19 09:03 Dose: 40 mg Documented by: Potassium Chloride (K-Dur) 20 meq PO BIDCM [facility] STROKE Vital Signs/Narrative: Vital Signs Temp Pulse Resp BP Pulse Ox 09/26/19 11:00 97.9 F 73 20 H 101/55 L 94 Medical Necessity - Tobacco Use Smoking Status: Never smoker Tobacco Use: Secondhand Assessment/Plan 1. Acute hypoxic respiratory failure secondary to acute diastolic congestive heart failure-recent 30 pound weight gain. Elevated BNP, increased lower extremity edema. Continue I's and O's, sodium restriction, fluid restriction, IV Lasix. IV Lasix changed to every 12 with increasing CO2. Will monitor, no need for Diamox at this point. Echo on chart. Some underlying pulmonary hypertension complicating the above. Potassium replaced. 2. Lymphedema-compression, elevate legs, recent negative duplex ultrasound for DVT. 3. Chest pressure- non further. negative EKG, negative enzymes, cardiology following. 4. Recent PE-Eliquis 5. Chronic A. fib-rate stable 6. CKD 3-stable 7. History of GI bleed-previously on Coumadin-okay on Eliquis 8. Hypertension-stable 9. Hyperlipidemia-gemfibrozil 10. Morbid obesity-dietitian consult, previous gastric bypass surgery 11. Chronic abdominal wounds-wound care following 12. Pelvic mass on recent CT-following with Dr. Avery with concerns for underlying cancer. Close follow[place]up at [place] 13. Chronic iron deficiency anemia-continue supplement. Hemoglobin stable. DVT prophylaxis: Eliquis JA planning: SNF This patient was seen by Isaac Serrano PA-C under the supervision of Doctor Hernandez.
--- NOTE | 2019-09-26 15:52 | CASEMGMT ---
SW received a call from Kemi at [facility]. They wanted clarification on patient's O2 and bi-pap requirements. They were also concerned that she only has 6 days before she will be in her co-pay days. They want to know if she can afford this or if she would qualify for Medicaid. SW went to see patient, but therapy was working with her and she was using the restroom. SW to check with patient tomorrow. Brandi OLIVER MSW
[2019-09-27] VITALS (16 sets, daily range): BP systolic 97–121; BP diastolic 52–76; PULSE 85–104; RESP 12–30; TEMP 36.3–36.9; O2SAT 92–98
[2019-09-27 05:29] LABS: Anion Gap 2 (5-15); BUN 27 mg/dL (7-18); BUN/Creat Ratio 26.2 RATIO (10-20); Calcium,Total 8.7 mg/dL (8.5-10.1); Chloride 97 mmol/L (98-107); Creatinine, Serum 1.03 mg/dL (0.55-1.02); EST Glomerular Filtration Rate 57 mL/min (>60); Est Glom Filt Rate - Afr Amer 68 mL/min (>60); Estimated Creatinine Clearance 43.24 ml/min; Glucose 100 mg/dL (74-106); Potassium 3.6 mmol/L (3.5-5.1); Sodium Level 142 mmol/L (136-145)
[2019-09-27] MEDS: Levothyroxine 137 MCG Tablet PO (06:38)
[2019-09-27] MEDS: Gemfibrozil 600 MG Tablet PO ×2 (06:38→16:53)
--- NOTE | 2019-09-27 08:53 | PCM.PN.CARD ---
Subjectve: Patient seen and examined, patient still has conversational dyspnea, and some difficulty with respirations. Despite this, the patient states that she feels better than she did yesterday. She was on BiPAP overnight and had a decent night sleep. She has had a marked slowdown in her diuresis since yesterday and decreasing diuretic therapy. Objective: Vital Signs Temp Pulse Resp BP Pulse Ox 97.7 F L 103 H 20 H 97/58 L 98 09/27/19 03:40 09/27/19 07:00 09/27/19 03:40 09/27/19 03:40 09/27/19 03:40 Oxygen Flow Rate (L/min) 5 Oxygen Delivery Method Nasal Cannula Weight: 255 lb 15.307 oz Body Mass Index (BMI) 47.8 Intake and Output for Last 24 Hours 09/25/19 09/26/19 09/27/19 23:59 23:59 23:59 Intake Total 1230 / 1230 1430 / 1430 240 / 240 Output Total 4050 / 4050 2200 / 2200 900 / 900 Balance -2820 / -2820 -770 / -770 -660 / -660 General: Awake, Alert, Oriented x 3 HEENT: PERRL, EOMI, Sclera Non Icteric Neck: Supple, Good ROM, No Lymph Node Enlargement Lungs: Clear to auscultation Cardiovascular: Irregular Rhythm, Normal S1, Normal S2, No Rubs, No Gallops Murmur Murmur: Grade 2/6, Holosystolic Vascular: No Carotid Bruits, Normal Femoral Pulses, Normal Radial Pulses, Normal Dorsalis Pedal Pulse, Normal Posterior Tibial Pulses Abdomen: Bowel Sounds Present, Soft, Non Tender, No HSM, No Organomegaly Extremities: No Cyanosis, No Clubbing, No edema Neurological: No Focal Motor or Sensory Deficit 09/27/19 05:00: Sodium 142, Potassium 3.6, Chloride 97 L, Carbon Dioxide 43.0 H, Anion Gap 2 L, BUN 27 H, Creatinine 1.03 H, Est GFR (MDRD) Af Amer 68, Est GFR (MDRD) Non-Af 57 L, BUN/Creatinine Ratio 26.2 H, Glucose 100, Calcium 8.7 Rhythm: EKG: ECHO: Stress Test: Cardiac Cath: PCI: CT Surgery: Holter monitor: EPS: PPM: CXR: Chest CT Scan: Medical Necessity - Tobacco Use Smoking Status: Never smoker Tobacco Use: Secondhand Assessment/Plan 1. Atrial fibrillation: Patient is controlled ventricular response, echocardiogram reviewed and shows severe left atrial large right with moderate mitral regurgitation, and LVEF around 50%. Mild pulmonary hypertension noted. The patient has severe pachydermia of her right lower remedy, and 2+ left lower extremity edema which is improving. Rest x-ray reviewed which demonstrates cardiomegaly but no pleural effusions. Patient's diuresis has decreased since decreasing her IV Lasix, and her bicarbonate has increased now to 43. Despite this, she still has significant dyspnea. I recommended that we discontinue her IV Lasix, and place her on a Bumex drip at 0.5 mg/h, and add Diamox to her therapy for her elevated bicarbonate. Continue full anticoagulation with Eliquis, and continue heart rate control with combination of calcium channel lesia and beta-lesia therapy. Unfortunately due to 2 episodes of severe GI bleeding in the past on Coumadin, she is not a good Coumadin candidate. Would request financial assistance vis-?-vis her insurance company to assist with cost of Eliquis. Consider social work consultation. At this time, the patient is not a surgical candidate at this time for aortic valve replacement or mitral valve repair surgery. Continue BiPAP therapy for oxygenation and ventilation purposes. If we are unable to adequately diurese her, or if her creatinine begins to increase despite our efforts, then consideration may want to be made for discussing possible hospice options with the patient and family. Another option would be to transfer to a tertiary care center to determine if the patient may benefit from surgical valvular correction. 2. Thank you very much for the opportunity to precipitate in the cardiac care of your patient. Inpatient E&M: 80181 Subs Hosp L2
[2019-09-27] MEDS: APIXABAN 5 MG TABLET PO ×2 (09:50→21:04)
[2019-09-27] MEDS: Metoprolol Tartrate 50 MG Tablet PO ×2 (09:50→21:04)
[2019-09-27] MEDS: Pantoprazole Sodium 40 MG Tablet PO (09:50)
[2019-09-27] MEDS: dilTIAZem CD 120 MG Capsule PO (09:50)
[2019-09-27] MEDS: Isosorbide Mononitrate 30 MG Tablet PO (09:50)
[2019-09-27] MEDS: AcetaZOLAMIDE 250 MG Tablet 125 MG PO ×2 (09:57→21:04)
[2019-09-27] MEDS: 0.9% Saline Lock 10 ML Syringe IV (09:59)
[2019-09-27] MEDS: Bumetanide 12.5 MG in CONTAINER,EMPTY 1 BAG 2 MG CONT INF (10:50)
--- NOTE | 2019-09-27 11:42 | CASEMGMT ---
Addendum entered by Bernadine Mg 09/27/19 14:11: Social Work Return call from Kemi at [facility] and they are able to accept pt and precert will be started today. Pt is aware. Plan: [facility] SNF, pending insurance approval JESSIE Fay Original Note: Social Work Received phone call from Kemi at [facility] stating they are able to accept pt but need infor on bipap settings and concern over payment as pt will be covered at 100% for only 6 more days then will have a $178/day copay. SONIA met with pt in room and introduced self and role at [facility]. Relayed the above information to pt who states she is not able to pay the copay. SONIA assisted pt in filling out Medicaid application. Phone call to HERNANDEZ and Loreto recommending sending application to [facility] (pt at [facility], lives in [place] and going to SNF in [place]). Medicaid veronica faxed to [facility]. ROSENDO left with Kemi at [facility] to inform and Bipap settings faxed. With pt permission phone call to pt son Julius to update on discharge plan and that pt has applied for Medicaid but family will need to assist with completion of Medicaid application. Julius agreeable to SNF placement and will assist with completion of Medicaid application. JESSIE Kim
--- NOTE | 2019-09-27 12:25 | PN_ITS ---
<Isaac Serrano - Last Filed: 09/27/19 12:25> Reason for Visit: SOB Subjective: Pt remains on O2 and with ongoing SOB at rest while on o2. Minimal improvement in SOB, minimal improvement in LE edema. No CP. No palp. No LH/dizziness. No abd pain, nausea, vomiting, diarrhea. Dry cough. Vitals/I&O's: Vital Signs Temp Pulse Resp BP Pulse Ox 97.8 F 88 20 H 114/58 L 95 09/27/19 09:40 09/27/19 11:00 09/27/19 09:40 09/27/19 09:50 09/27/19 11:00 Oxygen Flow Rate (L/min) 5 Oxygen Delivery Method Nasal Cannula Weight: 255 lb 15.307 oz Body Mass Index (BMI) 47.8 Intake and Output for Last 24 Hours 09/25/19 09/26/19 09/27/19 23:59 23:59 23:59 Intake Total 1230 / 1230 1430 / 1430 240 / 240 Output Total 4050 / 4050 2200 / 2200 900 / 900 Balance -2820 / -2820 -770 / -770 -660 / -660 General: Alert, Oriented x3, Cooperative HEENT: Atraumatic, PERRLA, EOMI, Normocephalic Neck: Supple, No JVD, Negative Carotid Bruits Lungs: Clear to auscultation, Diminished Cardiovascular: Regular rate, No murmurs Abdomen: Bowel Sounds Present, Soft, Non Tender Extremities: Capillary Refill Less than 3 Seconds, Edema - LE edema R>L, lymphedema Skin: No rashes, No breakdown Musculoskeletal: No Tenderness to Palpation of Joints or Extremities Neurological: Cranial nerves II-XII grossly intact Psych/Mental Status: Normal Affect, Appropriate, Alert and oriented to time, place, person, mood and affect Laboratory Results 09/27/19 05:00: Sodium 142, Potassium 3.6, Chloride 97 L, Carbon Dioxide 43.0 H, Anion Gap 2 L, BUN 27 H, Creatinine 1.03 H, Estim Creat Clear Calc 43.24, Est GFR (MDRD) Af Amer 68, Est GFR (MDRD) Non-Af 57 L, BUN/Creatinine Ratio 26.2 H, Glucose 100, Calcium 8.7 Current Medications Acetazolamide (Diamox) 125 mg PO BID [facility] Last Admin: 09/27/19 09:57 Dose: 125 mg Documented by: Apixaban (Eliquis) 5 mg PO BID [facility] Last Admin: 09/27/19 09:50 Dose: 5 mg Documented by: Diltiazem HCl (Cardizem Cd) 120 mg PO DAILY [facility] Last Admin: 09/27/19 09:50 Dose: 120 mg Documented by: Ferrous Sulfate (Ferrous Sulfate) 325 mg PO Mo [facility] Gemfibrozil (Lopid) 600 mg PO BIDAC [facility] Last Admin: 09/27/19 06:38 Dose: 600 mg Documented by: Bumetanide 12.5 mg/ (Miscellaneous Information) 50 mls @ 2 mls/hr CONT INF .Q25H [facility] Last Admin: 09/27/19 10:50 Dose: 0.5 mg/hr, 2 mls/hr Documented by: Isosorbide Mononitrate (Imdur) 30 mg PO DAILY [facility] Last Admin: 09/27/19 09:50 Dose: 30 mg Documented by: Levothyroxine Sodium (Synthroid) 137 mcg PO DAILY@0600 [facility] Last Admin: 09/27/19 06:38 Dose: 137 mcg Documented by: Metoprolol Tartrate (Lopressor (Beta Michelle)) 50 mg PO BID [facility] Last Admin: 09/27/19 09:50 Dose: 50 mg Documented by: Nitroglycerin (Nitrostat) 0.4 mg SUBLINGUAL Q5M PRN PRN Reason: CARDIAC/CHEST PAIN Nutritional Formula (Boris - [place] Flavor) [facility] Last Admin: 09/27/19 08:39 Dose: 1 packet Documented by: Pantoprazole Sodium (Protonix) 40 mg PO DAILY [facility] Last Admin: 09/27/19 09:50 Dose: 40 mg Documented by: Potassium Chloride (K-Dur) 20 meq PO BIDCM [facility] Last Admin: 09/27/19 08:40 Dose: 20 meq Documented by: STROKE Vital Signs/Narrative: Vital Signs Temp Pulse Resp BP Pulse Ox 09/27/19 11:00 88 95 09/27/19 09:50 104 H 114/58 L 09/27/19 09:40 97.8 F 104 H 20 H 114/58 L 92 Medical Necessity - Tobacco Use Smoking Status: Never smoker Tobacco Use: Secondhand Assessment/Plan 1. Acute hypoxic respiratory failure secondary to acute diastolic congestive heart failure-slow improvement. CO2 rising, pt changed to bumex and diamox today per cardiology. wean o2. continue dietary restrictions. 2. Lymphedema-compression, elevate legs, recent negative duplex ultrasound for DVT. 3. Chest pressure- non further. negative EKG, negative enzymes, cardiology following. 4. Recent PE-Eliquis 5. Chronic A. fib-rate stable 6. CKD 3-stable 7. History of GI bleed-previously on Coumadin-okay on Eliquis 8. Hypertension-stable 9. Hyperlipidemia-gemfibrozil 10. Morbid obesity-dietitian consult, previous gastric bypass surgery 11. Chronic abdominal wounds-wound care following 12. Pelvic mass on recent CT-following with Dr. Avery with concerns for underlying cancer. Close follow-up at [facility]. 13. Chronic iron deficiency anemia-continue supplement. Hemoglobin stable. DVT prophylaxis: Eliquis [place] planning: SNF This patient was seen by Isaac Serrano PA-C under the supervision of Doctor David <Mc Hernandez F - Last Filed: 09/27/19 16:34> Vitals/I&O's: Vital Signs Temp Pulse Resp BP Pulse Ox 97.8 F 90 20 H 108/53 L 92 09/27/19 13:40 09/27/19 13:40 09/27/19 13:40 09/27/19 13:40 09/27/19 13:40 Oxygen Flow Rate (L/min) 5 Oxygen Delivery Method Nasal Cannula Weight: 255 lb 15.307 oz Body Mass Index (BMI) 47.8 Intake and Output for Last 24 Hours 09/25/19 09/26/19 09/27/19 23:59 23:59 23:59 Intake Total 1230 / 1230 1430 / 1430 480 / 480 Output Total 4050 / 4050 2200 / 2200 1950 / 1950 Balance -2820 / -2820 -770 / -770 -1470 / -1470 Laboratory Results 09/27/19 05:00: Sodium 142, Potassium 3.6, Chloride 97 L, Carbon Dioxide 43.0 H, Anion Gap 2 L, BUN 27 H, Creatinine 1.03 H, Estim Creat Clear Calc 43.24, Est GFR (MDRD) Af Amer 68, Est GFR (MDRD) Non-Af 57 L, BUN/Creatinine Ratio 26.2 H, Glucose 100, Calcium 8.7 09/27/19 05:00: Magnesium 2.1 Current Medications Acetazolamide (Diamox) 125 mg PO BID [facility] Last Admin: 09/27/19 09:57 Dose: 125 mg Documented by: Apixaban (Eliquis) 5 mg PO BID [facility] Last Admin: 09/27/19 09:50 Dose: 5 mg Documented by: Diltiazem HCl (Cardizem Cd) 120 mg PO DAILY [facility] Last Admin: 09/27/19 09:50 Dose: 120 mg Documented by: Ferrous Sulfate (Ferrous Sulfate) 325 mg PO [facility] Last Admin: 09/27/19 06:38 Dose: 600 mg Documented by: Bumetanide 12.5 mg/ (Miscellaneous Information) 50 mls @ 2 mls/hr CONT INF .Q25H [facility] Last Admin: 09/27/19 10:50 Dose: 0.5 mg/hr, 2 mls/hr Documented by: Isosorbide Mononitrate (Imdur) 30 mg PO DAILY [facility] Last Admin: 09/27/19 09:50 Dose: 30 mg Documented by: Levothyroxine Sodium (Synthroid) 137 mcg PO DAILY@0600 [facility] Last Admin: 09/27/19 06:38 Dose: 137 mcg Documented by: Metoprolol Tartrate (Lopressor (Beta Michelle)) 50 mg PO BID [facility] Last Admin: 09/27/19 09:50 Dose: 50 mg Documented by: Nitroglycerin (Nitrostat) 0.4 mg SUBLINGUAL Q5M PRN PRN Reason: CARDIAC/CHEST PAIN Nutritional Formula (Boris - [place] Flavor) [facility] Last Admin: 09/27/19 08:39 Dose: 1 packet Documented by: Pantoprazole Sodium (Protonix) 40 mg PO DAILY [facility] Last Admin: 09/27/19 09:50 Dose: 40 mg Documented by: Potassium Chloride (K-Dur) 20 meq PO BIDCM [facility] Last Admin: 09/27/19 08:40 Dose: 20 meq Documented by: STROKE Vital Signs/Narrative: Vital Signs Temp Pulse Resp BP Pulse Ox 09/27/19 13:40 97.8 F 90 20 H 108/53 L 92 Addendum: Dr. Hernandez I personally examined the patient and reviewed the chart. I agree with the above. 68-year-old female who presents to the hospital with increasing lower extremity edema as well as shortness of breath. She states that she was diagnosed with a PE about a month ago and was started on Eliquis and since then she has been gaining weight. She had an echo here in September with a normal EF and indeterminate diastolic function given her A. fib, repeat echo with an EF of 55% and stage III diastolic dysfunction with mild pulmonary hypertension. Her BNP is elevated however we do not know what her baseline is. She does have a history of pulmonary hypertension. She says that she was here to be seen cardiology on 02 October therefore we will consult them for further evaluation and assistance especially given her fluid overload status and her slow A. fib, her heart rates here have been in the 40s. We decreased rate control medications in half. She is feeling much better now after IV Lasix, she had to be transitioned to Bumex and Diamox because of a rising bicarb. She states that she is breathing much better than when she came in initially. Continue with Eliquis for her history of a PE, she is to be on Coumadin however she had a GI bleed and therefore will also continue with her PPI. She does also have a large pelvic mass that was found at the end of July on CT scan of the abdomen. She is following with Dr. Avery, will recommend that he should continue to follow-up with him as an outpatient. Of note her right leg is always much larger than the left because she says of a heart cath that she had done 20 years ago that occurred in the right groin. Inpatient E&M: 86144 Subs Hosp L2
[2019-09-27 13:07] LABS: Magnesium 2.1 mg/dL (1.6-2.6)
[2019-09-28] VITALS (26 sets, daily range): BP systolic 99–126; BP diastolic 55–75; PULSE 83–113; RESP 12–30; TEMP 36.5–37.3; O2SAT 90–98
[2019-09-28] MEDS: Gemfibrozil 600 MG Tablet PO (06:51)
[2019-09-28] MEDS: Levothyroxine 137 MCG Tablet PO (06:51)
[2019-09-28] MEDS: Bumetanide 12.5 MG in CONTAINER,EMPTY 1 BAG 2 MG CONT INF (08:07)
[2019-09-28 08:09] LABS: Anion Gap 5 (5-15); BUN 28 mg/dL (7-18); Calcium,Total 8.8 mg/dL (8.5-10.1); Chloride 94 mmol/L (98-107); Creatinine, Serum 0.93 mg/dL (0.55-1.02); EST Glomerular Filtration Rate 63 mL/min (>60); Est Glom Filt Rate - Afr Amer 77 mL/min (>60); Estimated Creatinine Clearance 47.89 ml/min; Glucose 112 mg/dL (74-106); Potassium 3.6 mmol/L (3.5-5.1); Sodium Level 143 mmol/L (136-145)
[2019-09-28] MEDS: AcetaZOLAMIDE 250 MG Tablet 125 MG PO (09:25)
[2019-09-28] MEDS: Metoprolol Tartrate 50 MG Tablet PO (09:26)
[2019-09-28] MEDS: Isosorbide Mononitrate 30 MG Tablet PO (09:26)
[2019-09-28] MEDS: dilTIAZem CD 120 MG Capsule PO (09:26)
[2019-09-28] MEDS: Pantoprazole Sodium 40 MG Tablet PO (09:27)
[2019-09-28] MEDS: APIXABAN 5 MG TABLET PO (09:27)
--- NOTE | 2019-09-28 10:37 | PCM.PN.HOSP ---
<Isaac Serrano - Last Filed: 09/28/19 10:37> Reason for Visit: CHF Subjective: SOB improving. Pt compliant with bipap. No CP/pressure/tightness/heaviness/palp. Ongoing LE edema/lymphedema, no ZACKARY wraps on. Pt agreeable to SNF at [place]. Vitals/I&O's: Vital Signs Temp Pulse Resp BP Pulse Ox 97.7 F L 108 H 20 H 121/56 H 94 09/28/19 08:00 09/28/19 09:26 09/28/19 08:00 09/28/19 09:26 09/28/19 08:00 Oxygen Flow Rate (L/min) 5 Oxygen Delivery Method Bi-pap Weight: 247 lb 9.266 oz Body Mass Index (BMI) 47.8 Intake and Output for Last 24 Hours 09/26/19 09/27/19 09/28/19 23:59 23:59 23:59 Intake Total 1430 / 1430 720 / 720 160.17 / 160.17 Output Total 2200 / 2200 3650 / 3650 1000 / 1000 Balance -770 / -770 -2930 / -2930 -839.83 / -839.83 General: Alert, Oriented x3, Cooperative HEENT: Atraumatic, PERRLA, EOMI, Normocephalic Neck: Supple, No JVD, Negative Carotid Bruits Lungs: Clear to auscultation, Diminished Cardiovascular: Regular rate, No murmurs Abdomen: Bowel Sounds Present, Soft, Non Tender Extremities: Capillary Refill Less than 3 Seconds, Edema - lymphedema R>L Skin: No rashes, No breakdown Musculoskeletal: No Tenderness to Palpation of Joints or Extremities Neurological: Cranial nerves II-XII grossly intact Psych/Mental Status: Normal Affect, Appropriate, Alert and oriented to time, place, person, mood and affect Laboratory Results 09/27/19 05:00: Magnesium 2.1 09/28/19 06:40: Sodium 143, Potassium 3.6, Chloride 94 L, Carbon Dioxide 44.0 H, Anion Gap 5, BUN 28 H, Creatinine 0.93, Estim Creat Clear Calc 47.89, Est GFR (MDRD) Af Amer 77, Est GFR (MDRD) Non-Af 63, BUN/Creatinine Ratio 30.0 H, Glucose 112 H, Calcium 8.8 Current Medications Acetazolamide (Diamox) 125 mg PO BID [facility] Last Admin: 09/28/19 09:25 Dose: 125 mg Documented by: Apixaban (Eliquis) 5 mg PO BID [facility] Last Admin: 09/28/19 09:27 Dose: 5 mg Documented by: Diltiazem HCl (Cardizem Cd) 120 mg PO DAILY [facility] Last Admin: 09/28/19 09:26 Dose: 120 mg Documented by: Ferrous Sulfate (Ferrous Sulfate) 325 mg PO Mo [facility] Gemfibrozil (Lopid) 600 mg PO BIDAC [facility] Last Admin: 09/28/19 06:51 Dose: 600 mg Documented by: Bumetanide 12.5 mg/ (Miscellaneous Information) 50 mls @ 2 mls/hr CONT INF .Q25H [facility] Last Admin: 09/28/19 08:07 Dose: 0.5 mg/hr, 2 mls/hr Documented by: Isosorbide Mononitrate (Imdur) 30 mg PO DAILY [facility] Last Admin: 09/28/19 09:26 Dose: 30 mg Documented by: Levothyroxine Sodium (Synthroid) 137 mcg PO DAILY@0600 [facility] Last Admin: 09/28/19 06:51 Dose: 137 mcg Documented by: Metoprolol Tartrate (Lopressor (Beta Michelle)) 50 mg PO BID [facility] Last Admin: 09/28/19 09:26 Dose: 50 mg Documented by: Nitroglycerin (Nitrostat) 0.4 mg SUBLINGUAL Q5M PRN PRN Reason: CARDIAC/CHEST PAIN Nutritional Formula (Boris - [place] Flavor) 1 packet PO BIDCM [facility] Last Admin: 09/28/19 09:23 Dose: 1 packet Documented by: Pantoprazole Sodium (Protonix) 40 mg PO DAILY [facility] Last Admin: 09/28/19 09:27 Dose: 40 mg Documented by: Potassium Chloride (K-Dur) 20 meq PO BIDCM [facility] Last Admin: 09/28/19 09:24 Dose: 20 meq Documented by: STROKE Vital Signs/Narrative: Vital Signs Temp Pulse Resp BP Pulse Ox 09/28/19 09:26 108 H 121/56 H 09/28/19 08:00 97.7 F L 97 20 H 122/68 H 94 09/28/19 07:40 92 09/28/19 07:00 113 H Medical Necessity - Tobacco Use Smoking Status: Never smoker Tobacco Use: Secondhand Assessment/Plan 1. Acute hypoxic respiratory failure secondary to acute diastolic congestive heart failure-pt feels breathing is much better today, still requiring significant O2. CO2 up slightly today. Continue diamox/bumex drip. 2. Lymphedema-compression, elevate legs, recent negative duplex ultrasound for DVT. 3. Chest pressure- non further. negative EKG, negative enzymes, cardiology following. 4. Recent PE-Eliquis 5. Chronic A. fib-rate stable 6. CKD 3-stable 7. History of GI bleed-previously on Coumadin-okay on Eliquis 8. Hypertension-stable 9. Hyperlipidemia-gemfibrozil 10. Morbid obesity-dietitian consult, previous gastric bypass surgery 11. Chronic abdominal wounds-wound care following 12. Pelvic mass on recent CT-following with Dr. Avery with concerns for underlying cancer. Close follow-up at [facility] 13. Chronic iron deficiency anemia-continue supplement. Hemoglobin stable. DVT prophylaxis: Eliquis [place] planning: SNF This patient was seen by Isaac Serrano PA-C under the supervision of Doctor Hernandez <Mc Hernandez F - Last Filed: 09/28/19 14:46> Vitals/I&O's: Vital Signs Temp Pulse Resp BP Pulse Ox 98.5 F 95 19 H 105/66 94 09/28/19 14:00 09/28/19 14:00 09/28/19 14:00 09/28/19 14:00 09/28/19 14:00 Oxygen Flow Rate (L/min) 6 Oxygen Delivery Method Bi-pap Weight: 247 lb 9.266 oz Body Mass Index (BMI) 47.8 Intake and Output for Last 24 Hours 09/26/19 09/27/19 09/28/19 23:59 23:59 23:59 Intake Total 1430 / 1430 720 / 720 250.17 / 250.17 Output Total 2200 / 2200 3650 / 3650 1000 / 1000 Balance -770 / -770 -2930 / -2930 -749.83 / -749.83 Laboratory Results 09/28/19 06:40: Sodium 143, Potassium 3.6, Chloride 94 L, Carbon Dioxide 44.0 H, Anion Gap 5, BUN 28 H, Creatinine 0.93, Estim Creat Clear Calc 47.89, Est GFR (MDRD) Af Amer 77, Est GFR (MDRD) Non-Af 63, BUN/Creatinine Ratio 30.0 H, Glucose 112 H, Calcium 8.8 Current Medications Acetazolamide (Diamox) 125 mg PO BID [facility] Last Admin: 09/28/19 09:25 Dose: 125 mg Documented by: Apixaban (Eliquis) 5 mg PO BID [facility] Last Admin: 09/28/19 09:27 Dose: 5 mg Documented by: Diltiazem HCl (Cardizem Cd) 120 mg PO DAILY [facility] Last Admin: 09/28/19 09:26 Dose: 120 mg Documented by: Ferrous Sulfate (Ferrous Sulfate) 325 mg PO [facility] (Lopid) [facility] Last Admin: 09/28/19 06:51 Dose: 600 mg Documented by: Bumetanide 12.5 mg/ (Miscellaneous Information) 50 mls @ 2 mls/hr CONT INF .Q25H [facility] Last Admin: 09/28/19 08:07 Dose: 0.5 mg/hr, 2 mls/hr Documented by: Isosorbide Mononitrate (Imdur) 30 mg PO DAILY [facility] Last Admin: 09/28/19 09:26 Dose: 30 mg Documented by: Levothyroxine Sodium (Synthroid) 137 mcg PO DAILY@0600 [facility] Last Admin: 09/28/19 06:51 Dose: 137 mcg Documented by: Metoprolol Tartrate (Lopressor (Beta Michelle)) 50 mg PO BID [facility] Last Admin: 09/28/19 09:26 Dose: 50 mg Documented by: Nitroglycerin (Nitrostat) 0.4 mg SUBLINGUAL Q5M PRN PRN Reason: CARDIAC/CHEST PAIN Nutritional Formula (Boris - [place] Flavor) [facility] Last Admin: 09/28/19 09:23 Dose: 1 packet Documented by: Pantoprazole Sodium (Protonix) 40 mg PO DAILY [facility] Last Admin: 09/28/19 09:27 Dose: 40 mg Documented by: Potassium Chloride (K-Dur) 20 meq PO BIDCM [facility] Last Admin: 09/28/19 09:24 Dose: 20 meq Documented by: STROKE Vital Signs/Narrative: Vital Signs Temp Pulse Resp BP Pulse Ox 09/28/19 14:00 98.5 F 95 19 H 105/66 94 09/28/19 13:45 96 28 H 93 Addendum: Dr. Hernandez I personally examined the patient and reviewed the chart. I agree with the above. 68-year-old female who presents to the hospital with increasing lower extremity edema as well as shortness of breath. She states that she was diagnosed with a PE about a month ago and was started on Eliquis and since then she has been gaining weight. She had an echo here in September with a normal EF and indeterminate diastolic function given her A. fib, repeat echo with an EF of 55% and stage III diastolic dysfunction with mild pulmonary hypertension. Her BNP is elevated however we do not know what her baseline is. She does have a history of pulmonary hypertension. She says that she was here to be seen cardiology on 02 October therefore they were consulted for further evaluation and assistance especially given her fluid overload status and her slow A. fib, her heart rates here have been in the 40s. We decreased rate control medications in half. She is feeling much better now after IV Lasix, she had to be transitioned to Bumex and Diamox because of a rising bicarb. She states that she is breathing much better than when she came in initially. Continue with Eliquis for her history of a PE, she is to be on Coumadin however she had a GI bleed and therefore will also continue with her PPI. She does also have a large pelvic mass that was found at the end of July on CT scan of the abdomen. She is following with Dr. Avery, will recommend that he should continue to follow-up with him as an outpatient. Of note her right leg is always much larger than the left because she says of a heart cath that she had done 20 years ago that occurred in the right groin. Inpatient E&M: 93229 Subs Hosp L2
--- NOTE | 2019-09-28 11:26 | PN.CARD_ITS ---
Subjectve: Patient seen and evaluated. Appears to be stable. Objective: Vital Signs Temp Pulse Resp BP Pulse Ox 97.7 F L 108 H 20 H 121/56 H 94 09/28/19 08:00 09/28/19 09:26 09/28/19 08:00 09/28/19 09:26 09/28/19 08:00 Oxygen Flow Rate (L/min) 6 Oxygen Delivery Method Nasal Cannula Weight: 247 lb 9.266 oz Body Mass Index (BMI) 47.8 Intake and Output for Last 24 Hours 09/26/19 09/27/19 09/28/19 23:59 23:59 23:59 Intake Total 1430 / 1430 720 / 720 160.17 / 160.17 Output Total 2200 / 2200 3650 / 3650 1000 / 1000 Balance -770 / -770 -2930 / -2930 -839.83 / -839.83 General: Awake, Alert, Oriented x 3 HEENT: PERRL, EOMI, Sclera Non Icteric Neck: Supple, Good ROM, No Lymph Node Enlargement Lungs: Clear to auscultation Cardiovascular: Irregular Rhythm, Normal S1, Normal S2, No Murmurs, No Rubs, No Gallops Vascular: No Carotid Bruits, Normal Femoral Pulses, Normal Radial Pulses, Normal Dorsalis Pedal Pulse, Normal Posterior Tibial Pulses Abdomen: Bowel Sounds Present, Soft, Non Tender, No HSM, No Organomegaly Extremities: No Cyanosis, No Clubbing, Bilateral Edema +2 Musculoskeletal: No Erythema Skin: No Rashes Lymphatic: No Lymph Node Enlargement Neurological: No Focal Motor or Sensory Deficit Psych/Mental Status: Appropriate 09/27/19 05:00: Magnesium 2.1 09/28/19 06:40: Sodium 143, Potassium 3.6, Chloride 94 L, Carbon Dioxide 44.0 H, Anion Gap 5, BUN 28 H, Creatinine 0.93, Est GFR (MDRD) Af Amer 77, Est GFR ( RD) Non-Af 63, BUN/Creatinine Ratio 30.0 H, Glucose 112 H, Calcium 8.8 Rhythm: EKG: ECHO: Stress Test: Cardiac Cath: PCI: CT Surgery: Holter monitor: EPS: PPM: CXR: Chest CT Scan: Medical Necessity - Tobacco Use Smoking Status: Never smoker Tobacco Use: Secondhand Assessment/Plan 1. Shortness of breath She appears to have mild shortness of breath with an elevated natruretic peptide likely secondary to diastolic heart failure. The exact precipitating etiology is not clear. It could be due to her bradycardia from the medication with the atrial fibrillation. * Recommendation would be to diurese with intravenous bumetanide and Diamox * Reduce the dose of the beta-lesia as well as the calcium channel lesia * Repeat echocardiogram demonstrated evidence of left ventricular ejection frac tion of 50%, mild pulmonary hypertension, and severe left atrial enlargement. 2. Atrial fibrillation * Patient has atrial fibrillation with a controlled ventricular response rate. This is chronic. Patient has been on anticoagulation and rate control medication. It appears that she is more bradycardic and I will reduce the dose of the beta-lesia and all the calcium channel lesia. This has been done and she appears to be doing much better. * She will continue with anticoagulation for now but she is willing to discuss this further as she may not be able to afford the Eliquis * 3. Valvular heart disease * She does have evidence of mitral valve disease. The echocardiographic evaluation demonstrated evidence of moderate grade mitral regurgitation. * Further decisions on valve will be deferred to primary plan examiner. 4. Chronic pedal edema * She does appear to have significant changes with regard to her legs and I suspect this is multifactorial in etiology. * 5. Hypertension * Her blood pressure appears to be under good control on the current medical therapy and this will be continued with mild changes in her blood pressure management. * * Thank you for allowing me to participate in the care of your patient. Please don't hesitate to call if any issues arise *
--- NOTE | 2019-09-28 17:40 | RAD_ITS ---
STUDY: X-RAY CHEST REASON FOR EXAM: Female, 68 years old. SOB, TACHYPNEA TECHNIQUE: AP COMPARISON: 09/25/2019 FINDINGS: EKG leads project over the chest. Central pulmonary vascular congestion with patchy central and basilar predominant opacities worse since the prior study. There is some localized consolidation of the left lung base with obscuration left hemidiaphragm. Small pleural effusions are suspected. There is mild cardiac enlargement. Normal mediastinum and chloé. There is prominence of the pulmonary hilar arteries and peripheral pulmonary arteries, consistent with congestive heart failure (CHF). Normal visualized aortic arch and descending thoracic aorta. No acute bony process. There is no demonstrated abnormality of the visualized soft tissue structures of the upper abdomen. RAD/Chest 1 View (Portable) IMPRESSION: 1. Unfavorable change. Worsening CHF and pulmonary edema. Given localized left basilar infiltrate, superimposed pneumonia is also possible. Electronically Signed: Eric Nuñez MD (Brooks) at 17:56 EST , Service support ,
--- NOTE | 2019-09-28 17:49 | EKG12_ITS ---
Test Reason : Blood Pressure : / mmHG Vent. Rate : 100 BPM Atrial Rate : 089 BPM P-R Int : 000 ms QRS Dur : 080 ms QT Int : 328 ms P-R-T Axes : 000 045 031 degrees QTc Int : 423 ms Atrial fibrillation Low voltage QRS Septal infarct , age undetermined, cannot be excluded Nonspecific T wave abnormality Abnormal ECG Confirmed by YELITZA HAILE, ROLAND ([id number]), editor city LOKESH WYNN ([id number]) on 10/02/2019 10:03:53 AM Referred By: RAFITA POWELL Confirmed By:ROLAND TORRE MD
--- NOTE | 2019-09-28 18:13 | CPS ---
critical value called to Isaac WHITMORE.
[2019-09-28 19:08] LABS: Anion Gap 1 (5-15); BUN 30 mg/dL (7-18); BUN/Creat Ratio 31.2 RATIO (10-20); Calcium,Total 9.1 mg/dL (8.5-10.1); Chloride 96 mmol/L (98-107); Creatinine, Serum 0.96 mg/dL (0.55-1.02); EST Glomerular Filtration Rate 61 mL/min (>60); Est Glom Filt Rate - Afr Amer 74 mL/min (>60); Glucose 112 mg/dL (74-106); Potassium 3.6 mmol/L (3.5-5.1); Sodium Level 142 mmol/L (136-145)
--- NOTE | 2019-09-28 19:19 | PCM.HOSP.N ---
Hospitalist Note Patient was seen and examined tonabdias, she has been on BiPAP all day long, she continues on a Bumex drip at this time. I had the nurses take her BiPAP off and I asked her whether she wanted to be on a ventilator if it was necessary, patient shook her head no and she appeared to understand what I was asking. She stated that her only relative was a sister. I change the patient's CODE STATUS to a DNR CC arrest without intubation, I talked briefly with Dr. Huber Basilio about the patient's status, he requested the patient get a beta natruretic peptide drawn beni-I ordered it stat.
--- NOTE | 2019-09-28 20:00 | NURSING ---
Lab called at this time regarding outstanding bnp that remains pending. Per lab the machine is not able to read barcode at this time and they are unable to result the bnp, they will notify us with the bnp. Dr Humphreyis aware of lab issues.
--- NOTE | 2019-09-28 20:08 | NURSING ---
Pt sister Livia given update on pts on condition at this time. Aware that pt with increasing o2 needs, remains on continuous bipap therapy and aware that the md will be coming up to re-evaluate the pt. Sister stated that she would be coming in shortly to see pt.
--- NOTE | 2019-09-28 21:30 | PCM.PN.BLA ---
Progress Note Had a 40 mintue discussion on advance care planning with the patient and her sister. I explained that she is struggling to breath even with the BiPAP and that given her tachypnea, she may become exhausted and need intubated. She states to me and her sister, that she does not want to be intubated, and she is competent to make that decision, she does not have a POA. We discontinued the bumex drip as well as the diamox, will transition her to IV lopressor to help control her heart rate and avoid any breaks in her BiPAP therapy. Will re-assess in the am. STROKE Vital Signs/Narrative: Vital Signs Temp Pulse Resp BP Pulse Ox 09/28/19 20:00 98.5 F 108 H 28 H 122/69 H 98 09/28/19 19:35 98.5 F 102 H 24 H 124/75 H 90 09/28/19 19:32 101 H 30 H 95 09/28/19 19:00 99 09/28/19 18:55 99.1 F 94 25 H 113/66 93 09/28/19 18:12 101 H 26 H 94 09/28/19 18:03 98.1 F 101 H 23 H 109/58 L 94 Procedures: [id number] Advncd Care Plan 30 Min
--- NOTE | 2019-09-28 22:00 | NURSING ---
Pts son Julius called in regarding pt and wanting an update on her condition. Pt is agreeable to allow me to share information with Julius at this time. Update given.
[2019-09-28] MEDS: Metoprolol Tartrate 5 MG/5 ML Vial IV (22:23)
[2019-09-29] VITALS (16 sets, daily range): BP systolic 103–125; BP diastolic 64–76; PULSE 79–102; RESP 12–25; TEMP 36.8–37.1; O2SAT 75–99
[2019-09-29] LABS: Base Excess 25 mmol/L (-2 to +2); Blood Gas Specimen Type ART; EPAP 12; FI02 40; IPAP 22; PO2 67 mmHG (75-100); RR 12; SITE R Radial; SO2 92 % (95-99); Time Given 1755; Total Carbon Dioxide > 50 mmol/L; pCO2 74.2 mmHg (35-45); pH 7.43 (7.35-7.45)
[2019-09-29 06:05] LABS: Absolute Lymphocyte Count 0.42 X10^3/uL (0.83-4.51); Absolute Neutrophil Count 3.1 X10^3/uL (2.0-7.7); Basophil# 0.03 X10^3/uL; Basophil% 0.7 % (0-1); Eosinophil# 0.15 X10^3/uL; Eosinophils% 3.6 % (0-5); Hematocrit 35.6 % (37-47); Hemoglobin 9.5 g/dL (12.0-15.0); Lymphocyte # 0.42 X10^3/ul (4.0); Lymphocyte % 10.1 % (19-41); Mean Corp Hgb Conc 26.7 g/dL (32-36); Mean Corpuscular Hgb 23.3 pg (27.0-32.0); Mean Corpuscular Volume 87.3 fL (81-99); Mean Platelet Vol. 11.4 fl (6.2-12.0); Monocyte# 0.49 X10^3/uL; Monocyte% 11.8 % (0-10); NRBC Flagged by Analyzer 0 % (0-5); Neutrophil # 3.05 X10^3/uL (2.7-7.7); Neutrophil % 73.6 % (47-70); POSITIVE DIFFERENTIAL YES; POSITIVE MORPHOLOGY YES; Platelet Count 103 K/mm3 (150-450); RBC Distribution Width CV 20.3 % (11.6-14.6); RBC Distribution Width SD 65.1 fl (35.1-43.9); Red Blood Count 4.08 M/mm3 (4.2-5.4); White Blood Count 4.2 K/mm3 (4.4-11.0)
[2019-09-29 06:53] LABS: Differential Indicated SCAN CRITERIA MET
[2019-09-29 07:14] LABS: BUN 30 mg/dL (7-18); Calcium,Total 8.8 mg/dL (8.5-10.1); Carbon Dioxide > 45.0 mmol/L (21.0-32.0); Chloride 94 mmol/L (98-107); Creatinine, Serum 0.94 mg/dL (0.55-1.02); EST Glomerular Filtration Rate 63 mL/min (>60); Est Glom Filt Rate - Afr Amer 76 mL/min (>60); Estimated Creatinine Clearance 47.38 ml/min; Glucose 75 mg/dL (74-106); Potassium 3.4 mmol/L (3.5-5.1); Sodium Level 143 mmol/L (136-145)
[2019-09-29 07:44] LABS: Anisocytosis 1+; Hypochromasia 2+; Platelet Estimate SLT DEC (ADEQ)
--- NOTE | 2019-09-29 09:15 | CPS ---
Addendum entered by Brandi Galeano 09/29/19 09:38: PT CHANGED TO A MEDIUM FACE MASK AND DECREASED PRESSURE TO 18/8. 40%. PT TOLERATED WELL AND GOOD VT. Original Note: PT CHANGED TO A MED
--- NOTE | 2019-09-29 09:29 | PN.CARD_ITS ---
Subjectve: Patient seen and evaluated. Appears to be more somnolent Objective: Vital Signs Temp Pulse Resp BP Pulse Ox 98.6 F 87 23 H 125/75 H 98 09/29/19 08:00 09/29/19 09:00 09/29/19 09:00 09/29/19 09:00 09/29/19 09:00 Oxygen Flow Rate (L/min) 6 Oxygen Delivery Method Bi-pap Weight: 241 lb 2.971 oz Body Mass Index (BMI) 47.8 Intake and Output for Last 24 Hours 09/27/19 09/28/19 09/30/19 23:59 23:59 00:59 Intake Total 720 / 720 380.17 / 380.17 0 / 0 Output Total 3650 / 3650 5050 / 5050 650 / 650 Balance -2930 / -2930 -4669.83 / -4669.83 -650 / -650 General: Awake, Lethargic, Disoriented HEENT: PERRL, EOMI, Sclera Non Icteric Neck: Supple, Good ROM, No Lymph Node Enlargement Lungs: Clear to auscultation Cardiovascular: Irregular Rhythm, Normal S1, Normal S2, No Murmurs, No Rubs, No Gallops Vascular: No Carotid Bruits, Normal Femoral Pulses, Normal Radial Pulses, Normal Dorsalis Pedal Pulse, Normal Posterior Tibial Pulses Abdomen: Bowel Sounds Present, Soft, Non Tender, No HSM, No Organomegaly Extremities: No Cyanosis, No Clubbing, Bilateral Edema +2 Lymphatic: No Lymph Node Enlargement Neurological: No Focal Motor or Sensory Deficit Psych/Mental Status: Appropriate 09/28/19 17:57: pH 7.43, Bicarbonate Actual 49.0 H, POC Total CO2 > 50, Base Excess 25 H, O2 Saturation 92 L, ABG pCO2 74.2 H*, ABG pO2 67 L 09/28/19 18:15: Sodium 142, Potassium 3.6, Chloride 96 L, Carbon Dioxide 45.0 H, Anion Gap 1 L, BUN 30 H, Creatinine 0.96, Est GFR (MDRD) Af Amer 74, Est GFR (MDRD) Non-Af 61, BUN/Creatinine Ratio 31.2 H, Glucose 112 H, Calcium 9.1, Troponin I < 0.015 09/29/19 04:48: Sodium 143, Potassium 3.4 L, Chloride 94 L, Carbon Dioxide > 45.0 H*, Anion Gap TNP, BUN 30 H, Creatinine 0.94, Est GFR (MDRD) Af Amer 76, Est GFR (MDRD) Non-Af 63, BUN/Creatinine Ratio 32.0 H, Glucose 75, Calcium 8.8 09/29/19 04:48: WBC 4.2 L, RBC 4.08 L, Hgb 9.5 L, Hct 35.6 L, MCV 87.3, MCH 23.3 L, MCHC 26.7 L, Plt Count 103 L, MPV 11.4, Immature Gran % (Auto) 0.200, Neut % (Auto) 73.6 H, Lymph % (Auto) 10.1 L, [place] % (Auto) 11.8 H, Eos % (Auto) 3.6, Baso % (Auto) 0.7, Absolute Neuts (auto) 3.1, Nucleated RBC % 0 Rhythm: EKG: ECHO: Stress Test: Cardiac Cath: PCI: CT Surgery: Holter monitor: EPS: PPM: CXR: Chest CT Scan: Medical Necessity - Tobacco Use Smoking Status: Never smoker Tobacco Use: Secondhand Assessment/Plan 1. Shortness of breath She appears to have mild shortness of breath with an elevated natruretic peptide likely secondary to diastolic heart failure. The exact precipitating etiology is not clear. It could have been due to her bradycardia from the medication with the atrial fibrillation. * At this time it appears that she has been over diuresed with the bumetanide and Diamox and is now alkalotic. Would hold off on that for now * Reduce the dose of the beta-lesia as well as the calcium channel lesia * Repeat echocardiogram demonstrated evidence of left ventricular ejection fraction of 50%, mild pulmonary hypertension, and severe left atrial enlargement. 2. Atrial fibrillation * Patient has atrial fibrillation with a controlled ventricular response rate. This is chronic. Patient has been on anticoagulation and rate control medication. It appears that she is more bradycardic and I will reduce the dose of the beta-lesia and all the calcium channel lesia. This has been done and she appears to be doing much better. * She will continue with anticoagulation for now but she is willing to discuss this further as she may not be able to afford the Eliquis * 3. Valvular heart disease * She does have evidence of mitral valve disease. The echocardiographic evaluation demonstrated evidence of moderate grade mitral regurgitation. * Further decisions on valve will be deferred to primary reproducer. 4. Chronic pedal edema * She does appear to have significant changes with regard to her legs and I suspect this is multifactorial in etiology. * 5. Hypertension * Her blood pressure appears to be under good control on the current medical therapy and this will be continued with mild changes in her blood pressure management. * * 6. Patient appears to have developed significant electrolyte abnormalities. Have discussed with with the hospitalist. Would hold off on diuresis for now and see how she does with the BiPAP mask. Overall long-term prognosis is guarded. * Thank you for allowing me to participate in the care of your patient. Please don't hesitate to call if any issues arise *
--- NOTE | 2019-09-29 10:40 | NURSING ---
this RN in room to round on patient. Sister, Livia, at bedside. Pt states 'just take it off, let me go.' asked patient if she understands what happens if we take the bipap off in which she replied, 'yes, just let me go.' explained to patient that we can get hospice on board and that they will help make her comfortable. sister agreeable. Notified HAIM arnold. he went to patient room and talked with patient and family. orders to consult hospice. removed patient from bipap and placed on 6L N/C.
[2019-09-29 11:41] LABS: BNP,B-Type NATRIURETIC PEPTIDE 351.8 pg/mL (0-100)
[2019-09-29] MEDS: morphine (oral solution) 10MG/0.5ML Syringe 5 MG SL (11:48)
[2019-09-29] MEDS: Morphine 2 MG/ML Syringe IV (12:31)
[2019-09-29] MEDS: 0.9% Saline Lock 10 ML Syringe IV ×3 (12:31→15:41)
--- NOTE | 2019-09-29 12:53 | PCM.PN.HOSP ---
<Isaac Serrano - Last Filed: 09/29/19 13:55> Reason for Visit: Pt with increased work of breathing this AM, struggling with bipap. She asked to have the bipap off and to let her . I discussed this with her and three family members present sisters, brother. They understood that she would likely pass and were agreeable. The patient is a/o x 3 and appears competent and understanding of her decision making. With the approval of the patient and family we contacted hospice. They evaluated the patient and felt that she is too unstable to transport and would likely pass soon and want her to stay here until she passes. Vitals/I&O's: Vital Signs Temp Pulse Resp BP Pulse Ox 98.6 F 80 21 H 125/75 H 75 09/29/19 08:00 09/29/19 09:15 09/29/19 09:15 09/29/19 09:00 09/29/19 11:30 Oxygen Flow Rate (L/min) 15 Oxygen Delivery Method Nasal Cannula Weight: 241 lb 2.971 oz Body Mass Index (BMI) 47.8 Intake and Output for Last 24 Hours 09/27/19 09/28/19 09/30/19 23:59 23:59 00:59 Intake Total 720 / 720 380.17 / 380.17 0 / 0 Output Total 3650 / 3650 5050 / 5050 650 / 650 Balance -2930 / -2930 -4669.83 / -4669.83 -650 / -650 General: Alert, Oriented x3, Cooperative, Lethargic HEENT: Atraumatic, PERRLA, EOMI, Normocephalic Neck: Supple, No JVD, Negative Carotid Bruits Lungs: Clear to auscultation, Diminished Cardiovascular: Regular rate, No murmurs Abdomen: Bowel Sounds Present, Soft, Non Tender Extremities: Capillary Refill Less than 3 Seconds, Edema - lymphedema unchanged Skin: No rashes, No breakdown Musculoskeletal: No Tenderness to Palpation of Joints or Extremities Neurological: Cranial nerves II-XII grossly intact Psych/Mental Status: Normal Affect, Appropriate, Alert and oriented to time, place, person, mood and affect Laboratory Results 09/28/19 17:57: Specimen Type ART, Sample Site R Radial, pH 7.43, Bicarbonate Actual 49.0 H, POC Total CO2 > 50, Base Excess 25 H, O2 Saturation 92 L, O2 % 40, ABG pCO2 74.2 H*, ABG pO2 67 L, Respiration Rate 12, O2 Delivery Device Bi / C PAP, EPAP 12, IPAP 22, Blood Gas Notified Whom HUSSEIN HAILE, Blood Gas Notified Time 1138 09/28/19 18:15: Sodium 142, Potassium 3.6, Chloride 96 L, Carbon Dioxide 45.0 H, Anion Gap 1 L, BUN 30 H, Creatinine 0.96, Estim Creat Clear Calc 46.40, Est GFR (MDRD) Af Amer 74, Est GFR (MDRD) Non-Af 61, BUN/Creatinine Ratio 31.2 H, Glucose 112 H, Calcium 9.1, Troponin I < 0.015 09/28/19 18:15: B-Natriuretic Peptide 351.8 H 09/29/19 04:48: Sodium 143, Potassium 3.4 L, Chloride 94 L, Carbon Dioxide > 45.0 H*, Anion Gap TNP, BUN 30 H, Creatinine 0.94, Estim Creat Clear Calc 47.38, Est GFR (MDRD) Af Amer 76, Est GFR (MDRD) Non-Af 63, BUN/Creatinine Ratio 32.0 H, Glucose 75, Calcium 8.8 09/29/19 04:48: WBC 4.2 L, RBC 4.08 L, Hgb 9.5 L, Hct 35.6 L, MCV 87.3, MCH 23.3 L, MCHC 26.7 L, RDW Std Deviation 65.1 H, RDW Coeff of Mavis 20.3 H, Plt Count 103 L, MPV 11.4, Immature Gran % (Auto) 0.200, Neut % (Auto) 73.6 H, Lymph % (Auto) 10.1 L, [place] % (Auto) 11.8 H, Eos % (Auto) 3.6, Baso % (Auto) 0.7, Absolute Neuts (auto) 3.1, Absolute Lymphs (auto) 0.42 L, Nucleated RBC % 0, Differential Comment , Diff Path Review May foll, Platelet Estimate SLT DEC, Hypochromasia 2+, Anisocytosis 1+ Current Medications Apixaban (Eliquis) 5 mg PO BID DANA Last Admin: 09/29/19 12:26 Dose: Not Given Documented by: Diltiazem HCl (Cardizem Cd) 120 mg PO DAILY [facility] Last Admin: 09/29/19 12:26 Dose: Not Given Documented by: Ferrous Sulfate (Ferrous Sulfate) 325 mg PO Mo [facility] Gemfibrozil (Lopid) 600 mg PO BIDAC [facility] Last Admin: 09/29/19 06:03 Dose: Not Given Documented by: Isosorbide Mononitrate (Imdur) 30 mg PO DAILY [facility] Last Admin: 09/29/19 12:26 Dose: Not Given Documented by: Levothyroxine Sodium (Synthroid) 137 mcg PO DAILY@0600 [facility] Last Admin: 09/29/19 05:04 Dose: Not Given Documented by: Metoprolol Tartrate (Lopressor (Beta Michelle)) 50 mg PO BID [facility] Last Admin: 09/29/19 12:26 Dose: Not Given Documented by: Morphine Sulfate (Roxanol (Ir Oral Solution)) 5 mg SL Q1H PRN PRN PRN Reason: dyspnea Last Admin: 09/29/19 11:48 Dose: 5 mg Documented by: Nitroglycerin (Nitrostat) 0.4 mg SUBLINGUAL Q5M PRN PRN Reason: CARDIAC/CHEST PAIN Nutritional Formula (Boris - Mereta Flavor) 1 packet PO BIDCM [facility] Last Admin: 09/29/19 12:26 Dose: Not Given Documented by: Pantoprazole Sodium (Protonix) 40 mg PO DAILY [facility] Last Admin: 09/29/19 12:26 Dose: Not Given Documented by: Potassium Chloride (K-Dur) 20 meq PO BIDCM [facility] Last Admin: 09/29/19 12:26 Dose: Not Given Documented by: Sodium Chloride () 10 - 40 ml IV UD PRN PRN Reason: SALINE FLUSH Last Admin: 09/29/19 12:31 Dose: 10 ml Documented by: STROKE Vital Signs/Narrative: Vital Signs Pulse Resp BP Pulse Ox 09/29/19 11:30 75 09/29/19 09:15 80 21 H 97 09/29/19 09:00 87 23 H 125/75 H 98 09/29/19 08:59 79 24 H 98 Medical Necessity - Tobacco Use Smoking Status: Never smoker Tobacco Use: Secondhand Assessment/Plan 1. Acute hypoxic respiratory failure secondary to acute diastolic congestive heart failure-now with worsening breathing with contraction alkylosis. see abg, bmp. not tolerating bipap. diuretics stopped last night. Hospice contacted. SL morphine added. 2. Lymphedema-compression, elevate legs, recent negative duplex ultrasound for DVT. 3. Chest pressure- no cp. repeat trop and ekg neg. 4. Recent PE-Eliquis 5. Chronic A. fib-rate stable 6. CKD 3-stable 7. History of GI bleed-previously on Coumadin-okay on Eliquis 8. Hypertension-stable 9. Hyperlipidemia-gemfibrozil 10. Morbid obesity-dietitian consult, previous gastric bypass surgery 11. Chronic abdominal wounds-wound care following 12. Pelvic mass on recent CT-following with Dr. Avery with concerns for underlying cancer. Close follow-up at or. 13. Chronic iron deficiency anemia-continue supplement. Hemoglobin stable. DVT prophylaxis: Eliquis DC planning: Hospice. pt to remain her as she is unstable for transport and would likely not survive the trip. This patient was seen by Isaac Serrano PA-C under the supervision of Doctor David <Mc Hernandez F - Last Filed: 09/29/19 14:25> Vitals/I&O's: Vital Signs Temp Pulse Resp BP Pulse Ox 98.6 F 80 21 H 125/75 H 75 09/29/19 08:00 09/29/19 09:15 09/29/19 09:15 09/29/19 09:00 09/29/19 11:30 Oxygen Flow Rate (L/min) 15 Oxygen Delivery Method Nasal Cannula Weight: 241 lb 2.971 oz Body Mass Index (BMI) 47.8 Intake and Output for Last 24 Hours 09/27/19 09/28/19 09/30/19 23:59 23:59 00:59 Intake Total 720 / 720 380.17 / 380.17 0 / 0 Output Total 3650 / 3650 5050 / 5050 650 / 650 Balance -2930 / -2930 -4669.83 / -4669.83 -650 / -650 Laboratory Results 09/28/19 17:57: Specimen Type ART, Sample Site R Radial, pH 7.43, Bicarbonate Actual 49.0 H, POC Total CO2 > 50, Base Excess 25 H, O2 Saturation 92 L, O2 % 40, ABG pCO2 74.2 H*, ABG pO2 67 L, Respiration Rate 12, O2 Delivery Device Bi / C PAP, EPAP 12, IPAP 22, Blood Gas Notified Whom HUSSEIN HAILE, Blood Gas Notified Time 1755 09/28/19 18:15: Sodium 142, Potassium 3.6, Chloride 96 L, Carbon Dioxide 45.0 H, Anion Gap 1 L, BUN 30 H, Creatinine 0.96, Estim Creat Clear Calc 46.40, Est GFR (MDRD) Af Amer 74, Est GFR (MDRD) Non-Af 61, BUN/Creatinine Ratio 31.2 H, Glucose 112 H, Calcium 9.1, Troponin I < 0.015 09/28/19 18:15: B-Natriuretic Peptide 351.8 H 09/29/19 04:48: Sodium 143, Potassium 3.4 L, Chloride 94 L, Carbon Dioxide > 45.0 H*, Anion Gap TNP, BUN 30 H, Creatinine 0.94, Estim Creat Clear Calc 47.38, Est GFR (MDRD) Af Amer 76, Est GFR (MDRD) Non-Af 63, BUN/Creatinine Ratio 32.0 H, Glucose 75, Calcium 8.8 09/29/19 04:48: WBC 4.2 L, RBC 4.08 L, Hgb 9.5 L, Hct 35.6 L, MCV 87.3, MCH 23.3 L, MCHC 26.7 L, RDW Std Deviation 65.1 H, RDW Coeff of Mavis 20.3 H, Plt Count 103 L, MPV 11.4, Immature Gran % (Auto) 0.200, Neut % (Auto) 73.6 H, Lymph % (Auto) 10.1 L, [place] % (Auto) 11.8 H, Eos % (Auto) 3.6, Baso % (Auto) 0.7, Absolute Neuts (auto) 3.1, Absolute Lymphs (auto) 0.42 L, Nucleated RBC % 0, Differential Comment , Diff Path Review May foll, Platelet Estimate SLT DEC, Hypochromasia 2+, Anisocytosis 1+ Current Medications Apixaban (Eliquis) 5 mg PO BID DANA Last Admin: 09/29/19 12:26 Dose: Not Given Documented by: Hyoscyamine Sulfate (Levsin/Sl) 0.125 mg SUBLINGUAL Q4H PRN PRN PRN Reason: terminal secretions Last Admin: 09/29/19 14:00 Dose: 0.125 mg Documented by: Lorazepam (Ativan) 1 mg IV Q2H PRN PRN PRN Reason: respiratory distress/anxiety Last Admin: 09/29/19 13:24 Dose: 1 mg Documented by: Morphine Sulfate (Roxanol (Ir Oral Solution)) 10 mg SL Q1H PRN PRN PRN Reason: dyspnea Last Admin: 09/29/19 13:24 Dose: 10 mg Documented by: Sodium Chloride () 10 - 40 ml IV UD PRN PRN Reason: SALINE FLUSH Last Admin: 09/29/19 13:24 Dose: 10 ml Documented by: STROKE Vital Signs/Narrative: Vital Signs Pulse Ox 09/29/19 11:30 75 Addendum: Dr. Hernandez I personally examined the patient and reviewed the chart. I agree with the above. 68-year-old female who presents to the hospital with increasing lower extremity edema. She states that she had had a PE about a month and a half ago and was started on Eliquis. Since then she had a little bit of improvement but then started gaining weight. She went to an outside hospital where they diuresed her little bit and then sent her to a long term. At the long term she continued to gain weight back however they discharged her home. She presents again with shortness of breath. She states that she had gained about 35 pounds and that her normal body weight is around 235 and that she was 270 on admission. She was started on a Lasix drip and then transition to a Bumex drip. Yesterday she started struggling to breathe. She was placed back on BiPAP and her Bumex drip was discontinued because of the rising bicarb on her BMP. We had a discussion with her at that time about her getting exhausted and that she may need to be intubated. She stated that she did not want to be intubated, and she stated that clearly to myself and her sister. I discussed with her that if she were intubated we could get her through this potentially however she stated that she did not want to put her kids through that. This morning she continued to struggle to breathe and I discussed the intubation with the son and he expressed understanding that she did not want to be intubated. She did elect to finally go hospice because she was not tolerating the BiPAP any longer. Hospice was consulted. Inpatient E&M: [id number] Subs Hosp L2
--- NOTE | 2019-09-29 13:05 | NURSING ---
hospice liason and RN in room with patient and family. RN asking if we are comfortable keeping patient here at this point. Talked with Isaac Serrano & Dr Hernandez who are comfortable caring for patient here.
[2019-09-29] MEDS: morphine (oral solution) 10MG/0.5ML Syringe 10 MG SL ×3 (13:24→15:41)
[2019-09-29] MEDS: LORazepam 2 MG/ML Syringe 1 MG IV ×2 (13:24→15:41)
[2019-09-29] MEDS: Hyoscyamine Sulfate 0.125 MG Tablet SUBLINGUAL (14:00)
--- NOTE | 2019-09-29 16:35 | NURSING ---
This RN in room, listened for apical pulse for 60 seconds, no pulse, no RR. Notified Isaac Serrano. Isaac states that he will have Dr Hernandez come. Dr Hernandez in room @ 165, declared time of . Son, daughter in law, sister, and grandson at bedside.
--- NOTE | 2019-09-29 16:54 | EXP.PCM_ITS ---
Preliminary Cause of Hypoxic respiratory failure secondary to diastolic congestive heart failure Date of Admission: 09/23/19 Date of : 09/29/19 - Principle Diagnosis #1 diastolic congestive heart failure #2 acute hypoxic respiratory failure #3 chronic atrial fibrillation #4 chronic kidney disease stage III Hospital Course 68-year-old white female seen in the emergency room at [facility] with a chief complaint of shortness of breath and chest pain, work-up in the emergency room field her pulse ox to be 81% on room air, EKG showed atrial fibrillation with bradycardia, cardiac enzymes were normal. Chest x-ray was obtained which no acute cardiopulmonary process. There was the presence of interstitial fibrotic changes of the lungs. Patient's beta natruretic peptide was 250.2. Patient was admitted to PCU for congestive heart failure, she was seen in consultation by cardiology and her heart medications were readjusted. Patient was placed on a Bumex drip. Patient's respiratory status declined despite aggressive treatment, echocardiogram showed preserved EF with mild pulmonary hypertension. Patient had to be placed on BiPAP to stabilize her respiratory status but despite placing the patient on BiPAP, she continued deteriorating in the hospital. Patient requested that BiPAP be removed and she changed her CODE STATUS to a DNR CC arrest. Hospice was consulted but it was felt the patient was too unstable to move to the hospice inpatient facility. On 09/29/2019, I was called to examine the patient, she had no vital signs-no pulse rate no blood pressure-she was pronounced at 4:52 PM on 09/29/2019. Kristina ent's family members were in the room and they did not request an autopsy. Inpatient E&M: [id number] [facility]
[2019-10-01 10:16] LABS: Pathologist Review Reviewed
== END 2019-09-29 16:52 | DRG 291 ==
LOC: ED 15:22 → PCU 17:52
PROVIDERS: Internal Medicine; Nurse Practitioner Family; Physician Assistant; Admitting Provider Family Medicine; Emergency Provider Emergency Medicine; PCP Family Medicine; Visit Provider Family Medicine
DX: I13.0 Hypertensive heart and chronic kidney disease with heart failure and stage 1 through stage 4 chronic kidney disease, or unspecified chronic kidney disease (principal); I50.33 Acute on chronic diastolic (congestive) heart failure; J96.01 Acute respiratory failure with hypoxia; I48.20 Chronic atrial fibrillation, unspecified; Z68.42 Body mass index [BMI] 45.0-49.9, adult; Z79.02 Long term (current) use of antithrombotics/antiplatelets; N18.3 Chronic kidney disease, stage 3 (moderate); I27.29 Other secondary pulmonary hypertension; E78.5 Hyperlipidemia, unspecified; Z86.711 Personal history of pulmonary embolism; E66.01 Morbid (severe) obesity due to excess calories; E03.9 Hypothyroidism, unspecified; D50.9 Iron deficiency anemia, unspecified; K21.9 Gastro-esophageal reflux disease without esophagitis; R07.89 Other chest pain; Z98.84 Bariatric surgery status; M19.90 Unspecified osteoarthritis, unspecified site; Z79.899 Other long term (current) drug therapy; I89.0 Lymphedema, not elsewhere classified; Z86.79 Personal history of other diseases of the circulatory system; R19.00 Intra-abdominal and pelvic swelling, mass and lump, unspecified site; Z66 Do not resuscitate; I34.0 Nonrheumatic mitral (valve) insufficiency; E87.8 Other disorders of electrolyte and fluid balance, not elsewhere classified
CPT/HCPCS: 36415; 36600; 71045; 80048; 82803; 83735; 83880; 84484; 85025; 85027; 93005; 93306; 94002; 94003; 97110; 97116; 97162; 97166; 97530; 97535; 97802; 99285; Q9957; A4216; C8929; J1940